=== PATIENT | female | born 1990 | race Caucasian/White ===

== ENCOUNTER 2016-11-20 17:18 | Inpatient (IN) | payer OTHER ==
[2016-11-20] VITALS (8 sets, daily range): BP systolic 97–125; BP diastolic 55–88; PULSE 103–144; RESP 18–30; TEMP 98.2; O2SAT 97–100
[~2016-11-20] VITALS: Ht 162.6 cm; Wt 81.3 kg
[~2016-11-20 17:18] MED LIST: AUGM500T7 PO; DIFL100T PO; DOXY100C PO; METH5SOL11 PO; OXYC1TAB35 PO; POTA20TA5 PO
[2016-11-20] MEDS ORDERED: DEXTROSE 5% IV SCH ×6 (17:45→22:45)
[2016-11-20] MEDS ORDERED: WATER IV SCH ×2 (17:45)
[2016-11-20] MEDS ORDERED: ACETYLCYSTEINE IV SCH ×6 (17:45→22:45)
[2016-11-20 17:58] LABS: BLOOD GAS BASE EXCESS -4.4 mmol/L (-2-2); BLOOD GAS CARBOXYHEMOGLOBIN 5.5 % (0-4); BLOOD GAS HCO3 20 mmol/L (22-26); BLOOD GAS METHEMOGLOBIN 2.3 % (0-2); BLOOD GAS O2 HGB SATURATION 89 % (90-100); BLOOD GAS OXYGEN CONTENT 17.3 Vol % (12.0-20.0); BLOOD GAS PCO2 32 mmHg (38-42); BLOOD GAS PO2 92 mmHG (61-120); BLOOD GAS TOTAL HGB 13.7 G/DL (12.0-16.0); TEMP CORR TO 98.6
[2016-11-20 17:59] LABS: CRITICAL VALUE YES; DRAW SITE RT RADIAL; FIO2 21 %; NUMBER OF ARTERIAL PUNCTURES 1; STAT YES; ULNAR PULSE PRESENT
[2016-11-20 18:04] LABS: AUTOMATED NEUTROPHIL # 5.5 TH/MM3 (1.8-7.7); BASOPHIL % 0.4 % (0.0-2.0); EOSINOPHIL # 0.1 TH/MM3 (0-0.4); EOSINOPHIL % 0.8 % (0.0-4.0); HEMATOCRIT 43.8 % (35.0-46.0); HEMO FLAGS DIFF FINAL; LYMPHOCYTE # 4.7 TH/MM3 (1.0-4.8); MEAN CELL VOLUME 98.4 FL (80.0-100.0); MEAN CORPUSCULAR HEMOGLOBIN 32.7 PG (27.0-34.0); MEAN CORPUSCULAR HGB CONC 33.2 % (32.0-36.0); MONO % 8.3 % (0.0-8.0); NEUT % 48.5 % (16.0-70.0); PLATELET COUNT 323 TH/MM3 (150-450); RED BLOOD COUNT 4.45 MIL/MM3 (4.00-5.30); WHITE BLOOD COUNT 11.3 TH/MM3 (4.0-11.0)
[2016-11-20 18:17] LABS: AMPHETAMINE, URINE NEG (NEG); BARBITURATES, URINE NEG (NEG); COCAINE, URINE POS (NEG)
[2016-11-20 18:22] LABS: ANION GAP 15 MEQ/L (5-15)
[2016-11-20 18:26] LABS: ALKALINE PHOSPHATASE 110 U/L (45-117); ALT (GPT) 52 U/L (10-53); AST (GOT) 46 U/L (15-37); BICARBONATE 20.7 MEQ/L (21.0-32.0); BLOOD UREA NITROGEN 10 MG/DL (7-18); CHLORIDE 99 MEQ/L (98-107); GLOMERULAR FILTRATION RATE 98 ML/MIN (>89); POTASSIUM 3.6 MEQ/L (3.5-5.1); SODIUM (NA) 135 MEQ/L (136-145); TOTAL BILIRUBIN ADULT 1.7 MG/DL (0.2-1.0)
[2016-11-20 18:29] LABS: ACETAMINOPHEN 298.8 MCG/ML (10.0-30.0)
[2016-11-20] MEDS ORDERED: WATE IV SCH ×4 (18:45→22:45)
--- NOTE | 2016-11-20 18:45 | PD ---
HPI Chief Complaint: OD/ Ingestion Time Seen by Provider: 17:40 Travel History International Travel<30 days: No Contact w/Intl Traveler<30days: No Traveled to known affect area: No History of Present Illness HPI 26-year-old female brought in by ambulance after being found sleeping in a parking lot and admitting to taking 1.5 bottles of Tylenol. Patient also admits to drinking alcohol to EMS. Upon arrival to the emergency department she is agitated and tearful. She states "you don't know me" and "I hate you". When asked if she took the Tylenol to kill herself she states "what do you think ?" She is unwilling to answer any other of my questions and is unable to tell me when she took the Tylenol. PFS Past Medical History ADHD: Yes Asthma: Yes (as child) Autoimmune Disease: No Blood Disorders: No Weight (Kg): 3 Cancer: No Cardiovascular Problems: No COPD: No Diabetes: No Diminished Hearing: No Endocrine: No Gastrointestinal Disorders: Yes Genitourinary: Yes (uti) Headaches: No Immune Disorder: No Implanted Vascular Access Dvce: No Musculoskeletal: No Neurologic: No Psychiatric: No Reproductive: No Respiratory: Yes (ASTHMA) Immunizations Current: Yes Migraines: No Pneumonia: Yes Seizures: No Sleep Apnea: No Thyroid Disease: No Ulcer: No ?: Unknown : 0 Para: 0 Past Surgical History Appendectomy: No Section: No Cholecystectomy: No Oral Surgery: Yes Other Surgery: Yes (ROOT CANAL 03/23/2010, JAW SURGERY) Social History Alcohol Use: Yes (OCCASIONALLY) Tobacco Use: Yes (1 PPD) Substance Use: Yes (IVDU) Allergies-Medications (Allergen,Severity, Reaction): Coded Allergies: *MDRO Multi-Drug Resistant Organism (Verified Adverse Reaction, Unknown, ) MRSA (face) -10/17/16 Reported Meds & Prescriptions Reported Meds & Active Scripts Active No Active Prescriptions or Reported Medications Review of Systems Except as stated in HPI: all other systems reviewed are Neg Physical Exam Narrative GENERAL: Awake, tearful, agitated SKIN: Warm and dry. Multiple horizontal scars from likely self-inflicted wounds to left anterior forearm. No rashes. HEAD: Atraumatic. Normocephalic. EYES: Pupils equal, round, 3 mm, reactive to light. No scleral icterus. No injection or drainage. ENT: No nasal bleeding or discharge. Mucous membranes pink and moist. Poor dentition. NECK: Trachea midline. No JVD. No nuchal rigidity. CARDIOVASCULAR: Regular rate and rhythm. RESPIRATORY: No accessory muscle use. Clear to auscultation. Breath sounds equal bilaterally. GASTROINTESTINAL: Abdomen soft, non-tender, nondistended. Hepatic and splenic margins not palpable. MUSCULOSKELETAL: No obvious deformities. No clubbing. No cyanosis. No edema. NEUROLOGICAL: Awake and alert. No obvious cranial nerve deficits. Motor grossly within normal limits. Normal speech. No focal deficit. PSYCHIATRIC: Tearful, agitated. Data Data Last Documented VS Vital Signs Date Time Temp Pulse Resp B/P Pulse Ox O2 Delivery O2 Flow Rate FiO2 11/20/16 18:30 105 30 97/55 99 Room Air 11/20/16 18:00 2.00 11/20/16 17:25 98.2 Orders Complete Blood Count With Diff (11/20/16 17:40) Comprehensive Metabolic Panel (11/20/16 17:40) Drug Screen, Random Urine (11/20/16 17:40) Electrocardiogram (11/20/16 17:40) Alcohol (Ethanol) (11/20/16 17:40) Salicylates (Aspirin) (11/20/16 17:40) Tylenol (Acetaminophen) (11/20/16 17:40) Arterial Blood Gas (Abg) (11/20/16 ) Acetylcysteine Inj (Acetadote Inj) (11/20/16 17:45) Acetylcysteine Inj (Acetadote Inj) (11/20/16 18:45) Acetylcysteine Inj (Acetadote Inj) (11/20/16 22:45) Cath For Specimen (11/20/16 17:54) Prothrombin Time / Inr (Pt) (11/20/16 17:54) Act Partial Throm Time (Ptt) (11/20/16 17:54) Consult Vascular Access Team (11/20/16 ) Admit Order (Ed Use Only) (11/20/16 18:47) Labs Laboratory Tests Test 11/20/16 11/20/16 17:45 17:48 White Blood Count 11.3 TH/MM3 Red Blood Count 4.45 MIL/MM3 Hemoglobin 14.6 GM/DL Hematocrit 43.8 % Mean Corpuscular Volume 98.4 FL Mean Corpuscular Hemoglobin 32.7 PG Mean Corpuscular Hemoglobin 33.2 % Concent Red Cell Distribution Width 14.0 % Platelet Count 323 TH/MM3 Mean Platelet Volume 8.0 FL Neutrophils (%) (Auto) 48.5 % Lymphocytes (%) (Auto) 42.0 % Monocytes (%) (Auto) 8.3 % Eosinophils (%) (Auto) 0.8 % Basophils (%) (Auto) 0.4 % Neutrophils # (Auto) 5.5 TH/MM3 Lymphocytes # (Auto) 4.7 TH/MM3 Monocytes # (Auto) 0.9 TH/MM3 Eosinophils # (Auto) 0.1 TH/MM3 Basophils # (Auto) 0.0 TH/MM3 CBC Comment DIFF FINAL Differential Comment Sodium Level 135 MEQ/L Potassium Level 3.6 MEQ/L Chloride Level 99 MEQ/L Carbon Dioxide Level 20.7 MEQ/L Anion Gap 15 MEQ/L Blood Urea Nitrogen 10 MG/DL Creatinine 0.73 MG/DL Estimat Glomerular Filtration 98 ML/MIN Rate Random Glucose 102 MG/DL Calcium Level 8.5 MG/DL Total Bilirubin 1.7 MG/DL Aspartate Amino Transf 46 U/L (AST/SGOT) Alanine Aminotransferase 52 U/L (ALT/SGPT) Alkaline Phosphatase 110 U/L Total Protein 8.3 GM/DL Albumin 4.1 GM/DL Salicylates Level LESS THAN 1.7 MG/DL Urine Opiates Screen NEG Acetaminophen Level 298.8 MCG/ML Urine Barbiturates Screen NEG Urine Amphetamines Screen NEG Urine Benzodiazepines Screen POS Urine Cocaine Screen POS Urine Cannabinoids Screen NEG Ethyl Alcohol Level 264 MG/DL Blood Gas Puncture Site RT RADIAL Blood Gas Patient Temperature 98.6 Blood Gas HCO3 20 mmol/L Blood Gas Base Excess -4.4 mmol/L Blood Gas Oxygen Saturation 89 % Arterial Blood pH 7.40 Arterial Blood Partial 32 mmHg Pressure CO2 Arterial Blood Partial 92 mmHG Pressure O2 Arterial Blood Oxygen Content 17.3 Vol % Arterial Blood 5.5 % Carboxyhemoglobin Arterial Blood Methemoglobin 2.3 % Blood Gas Hemoglobin 13.7 G/DL Blood Gas Inspired Oxygen 21 % MDM Medical Decision Making Medical Screen Exam Complete: Yes Emergency Medical Condition: Yes Medical Record Reviewed: Yes Differential Diagnosis Tylenol overdose, alcohol intoxication, drug intoxication, suicidal ideation Narrative Course The patient was started on N-acetylcysteine shortly after arrival to the emergency department for reported Tylenol overdose today, unknown time of onset. Poison control was contacted by my nurse and they agree with starting the patient on N-acetylcysteine as well as the rest of our management. CBC is unremarkable. CMP is unremarkable aside from a T bili of 1.7. Urine drug screen is positive for benzodiazepines and cocaine. Alcohol level is 264. Tylenol level is 298. Case discussed with [employer] consultant Dr. Hernandez who will admit the patient to his service. Patient became very agitated. She was a threat to both herself and to staff. 4 point restraints were ordered. Critical Care Narrative Aggregate critical care time was 40 minutes. Time to perform other separately billable procedures was not included in the critical care time. My time did not include minutes spent treating any other patients simultaneously or on activities that did not directly contribute to the patient's treatment. The services I provided to this patient were to treat and/or prevent clinically significant deterioration that could result in: , permanent disability, liver failure I provided critical care services requiring my management, as noted below: Chart data review, documentation time, medication orders and management, vital sign assessments/reviewing monitor data, ordering and reviewing lab tests, ordering and interpreting/reviewing x-rays and diagnostic studies, care of the patient and discussion of the patient with the admitting physicians. Diagnosis Primary Impression: Tylenol overdose Qualified Code: T39.1X2A - Tylenol overdose, intentional self-harm, initial encounter Additional Impression: Alcohol intoxication Qualified Code: F10.129 - Alcohol intoxication, with unspecified complication Admitting Information Admitting Physician Requests: Admit Scripts No Active Prescriptions or Reported Meds Catracho Benitez MD Nov 20, 2016 18:45
[2016-11-20] MEDS ORDERED: MISCELLANEOUS NURSING INFORMATION XX SCH (19:00)
[2016-11-20] MEDS ORDERED: MORPHINE SULFATE 4 MG/ML INJ IV PRN (19:00)
[2016-11-20] MEDS ORDERED: CHLORHEXIDINE GLUCONATE 2 % 1 PACK (2 CLOTHS) TOP PRN (19:00)
[2016-11-20] MEDS ORDERED: SODIUM CHLORIDE 0.9% FLUSH 5 ML FLUSH IV FLUSH PRN (19:00)
[2016-11-20] MEDS ORDERED: RESP: ALBUTEROL 2.5 MG/IPRATROPIUM 0.5 MG NEB (PRN) INH (19:00)
[2016-11-20] MEDS ORDERED: ONDANSETRON HCL 4 MG/2 ML VIAL IV PRN (19:00)
[2016-11-20] MEDS ORDERED: LORazepam 2 MG/ML VIAL IV PRN (19:00)
--- NOTE | 2016-11-20 19:17 | HHI.HP ---
HPI Service Critical Care Medicine Primary Care Physician No Primary Care Physician Admission Diagnosis Tylenol overdose, alcohol intoxication Diagnosis: Chief Complaint: Intentional drug overdose Travel History International Travel<30 Days: No Contact w/Intl Traveler <30 Da: No Traveled to Known Affected Are: No History of Present Illness 26 y/o woman with extensive IVDU history intentionally ingested a large amount of tylenol and ethyl alcohol today. Tylenol level 298, ETOH 264. Urine positive for cocaine and narcotics. Clearly altered mental status on arrival to ED, unable to make rational decisions. Will require a sedation protocol for severe agitation. I fully anticipate hepatic injury will ensue. NAC has been started in ED promptly. Review of Systems ROS No chest pain or SOB. Intixicated however. Past Family Social History Allergies: Coded Allergies: *MDRO Multi-Drug Resistant Organism (Verified Adverse Reaction, Unknown, ) MRSA (face) -10/17/16 Past Medical History Past Medical History ADHD: Yes Asthma: Yes (as child) Autoimmune Disease: No Blood Disorders: No Weight (Kg): 3 Cancer: No Cardiovascular Problems: No COPD: No Diabetes: No Diminished Hearing: No Endocrine: No Gastrointestinal Disorders: Yes Genitourinary: Yes (uti) Headaches: No Immune Disorder: No Implanted Vascular Access Dvce: No Musculoskeletal: No Neurologic: No Psychiatric: No Reproductive: No Respiratory: Yes (ASTHMA) Immunizations Current: Yes Migraines: No Pneumonia: Yes Seizures: No Sleep Apnea: No Thyroid Disease: No Ulcer: No ?: Unknown : 0 Para: 0 Past Surgical History Appendectomy: No Section: No Cholecystectomy: No Oral Surgery: Yes Other Surgery: Yes (ROOT CANAL 03/23/2010, JAW SURGERY) Social History Alcohol Use: Yes (OCCASIONALLY) Tobacco Use: Yes (1 PPD) Substance Use: Yes (IVDU) Allergies-Medications Allergies-Medications (Allergen,Severity, Reaction): Coded Allergies: *MDRO Multi-Drug Resistant Organism (Verified Adverse Reaction, Unknown, ) MRSA (face) -10/17/16 Reported Meds & Prescriptions Reported Meds & Active Scripts Active No Active Prescriptions or Reported Medications Physical Exam Vital Signs Vital Signs Date Time Temp Pulse Resp B/P Pulse Ox O2 Delivery O2 Flow Rate FiO2 11/20/16 18:30 105 30 97/55 99 Room Air 11/20/16 18:00 98 Nasal Cannula 2.00 11/20/16 17:25 98.2 103 18 125/73 100 Physical Exam Gen: Severely agitated woman. Head: Atraumatic. Neck: Supple, airway widely patent. Lungs: Clear, no wheezes or crackles. Tachypnea. Heart: Tachycardia, NL S1S2. No JVD between screaming. Abdomen: Soft, voluntary guarding only. No tenderness. Extremities: Warm, well perfused. Numerous superficial transverse laceration left forearm. Neuro: Moves 4 limbs with 5/5 strength. Agitated, confused. Pupils 3 mm, reactive. Laboratory Laboratory Tests Test 11/20/16 11/20/16 17:45 17:48 White Blood Count 11.3 Red Blood Count 4.45 Hemoglobin 14.6 Hematocrit 43.8 Mean Corpuscular Volume 98.4 Mean Corpuscular Hemoglobin 32.7 Mean Corpuscular Hemoglobin 33.2 Concent Red Cell Distribution Width 14.0 Platelet Count 323 Mean Platelet Volume 8.0 Neutrophils (%) (Auto) 48.5 Lymphocytes (%) (Auto) 42.0 Monocytes (%) (Auto) 8.3 Eosinophils (%) (Auto) 0.8 Basophils (%) (Auto) 0.4 Neutrophils # (Auto) 5.5 Lymphocytes # (Auto) 4.7 Monocytes # (Auto) 0.9 Eosinophils # (Auto) 0.1 Basophils # (Auto) 0.0 CBC Comment DIFF FINAL Differential Comment Sodium Level 135 Potassium Level 3.6 Chloride Level 99 Carbon Dioxide Level 20.7 Anion Gap 15 Blood Urea Nitrogen 10 Creatinine 0.73 Estimat Glomerular Filtration 98 Rate Random Glucose 102 Calcium Level 8.5 Total Bilirubin 1.7 Aspartate Amino Transf 46 (AST/SGOT) Alanine Aminotransferase 52 (ALT/SGPT) Alkaline Phosphatase 110 Total Protein 8.3 Albumin 4.1 Salicylates Level LESS THAN 1.7 Urine Opiates Screen NEG Acetaminophen Level 298.8 Urine Barbiturates Screen NEG Urine Amphetamines Screen NEG Urine Benzodiazepines Screen POS Urine Cocaine Screen POS Urine Cannabinoids Screen NEG Ethyl Alcohol Level 264 Blood Gas Puncture Site RT RADIAL Blood Gas Patient Temperature 98.6 Blood Gas HCO3 20 Blood Gas Base Excess -4.4 Blood Gas Oxygen Saturation 89 Arterial Blood pH 7.40 Arterial Blood Partial 32 Pressure CO2 Arterial Blood Partial 92 Pressure O2 Arterial Blood Oxygen Content 17.3 Arterial Blood 5.5 Carboxyhemoglobin Arterial Blood Methemoglobin 2.3 Blood Gas Hemoglobin 13.7 Blood Gas Inspired Oxygen 21 Result Diagram: 11/20/16 1745 11/20/161744 Assessment and Plan Problem List: (1) Tylenol overdose ICD Code: T39.1X1A Status: Acute (2) Alcohol intoxication ICD Code: F10.129 Status: Acute Assessment and Plan Plan: CV: Aggressive hydration. Maintain urine > 50/hr. RESP: Elevated methgb and carboxyHgb, maintain pulse ox sats > 96%. May require intubation. NEURO: Watch for withdrawal seizures. Neuro checks hourly. GI: Sips only. LFTs q12h. : Urine > 50/hr HEME: Daily INR. ID: Observe for facial recurrence of past abscess. ENDO: q6h glucose. RENAL: Follow lytes PX: SCDs, no chemical - anticipate liver failure. Protonix. Overall impression: Patient is critically ill with potentially lethal tylenol ingestion and alcohol intoxication. Her liver function will deteriorate over the next 24 hours and I anticipate bleeding problems and possible coma. NAC antidote is infusing. Critical Care 44 mins Problem Qualifiers (1) Tylenol overdose: Qualified Code: T39.1X2A - Tylenol overdose, intentional self-harm, initial encounter (2) Alcohol intoxication: Qualified Code: F10.129 - Alcohol intoxication, with unspecified complication Shahram Hernandez MD Nov 20, 2016 19:17
[2016-11-20] MEDS: SODIUM CHLOR 0.9% 1000 ML INJ 1,000 ML IV SCH (19:23)
[2016-11-20 20:05] LABS: APTT (PATIENT) 25.4 SEC (24.3-30.1); INTERNATIONAL NORMALIZED RATIO 1.1 RATIO; PROTHROMBIN TIME - PATIENT 11.8 SEC (9.8-11.6)
[2016-11-20] MEDS: DEXMEDETOMIDINE INJ 50 ML IV SCH ×2 (20:13→22:46)
[2016-11-20] MEDS: PANTOPRAZOLE SODIUM 40 MG VIAL IV SCH (20:18)
[2016-11-20] MEDS: CHLORHEXIDINE GLUCONATE 2 % 1 PACK (2 CLOTHS) TOP SCH (21:41)
[2016-11-21] VITALS (14 sets, daily range): BP systolic 95–141; BP diastolic 60–91; PULSE 53–88; RESP 14–20; TEMP 98–98.7; O2SAT 98–100
[2016-11-21] MEDS: DEXMEDETOMIDINE INJ 50 ML IV SCH ×2 (00:02→03:22)
[2016-11-21] MEDS: SODIUM CHLOR 0.9% 1000 ML INJ 1,000 ML IV SCH ×4 (03:26→20:46)
[2016-11-21 05:37] LABS: BLOOD GAS CARBOXYHEMOGLOBIN 1.7 % (0-4); BLOOD GAS HCO3 23 mmol/L (22-26); BLOOD GAS METHEMOGLOBIN 0.8 % (0-2); BLOOD GAS O2 HGB SATURATION 91 % (90-100); BLOOD GAS OXYGEN CONTENT 15.1 Vol % (12.0-20.0); BLOOD GAS PCO2 35 mmHg (38-42); BLOOD GAS PO2 68 mmHg (61-120); BLOOD GAS TOTAL HGB 11.8 G/DL (12.0-16.0); CRITICAL VALUE NO; FIO2 21 %; OXYGEN DEVICE RA; TEMP CORR TO 98.6
[2016-11-21 05:38] LABS: DRAW SITE LT RADIAL; NUMBER OF ARTERIAL PUNCTURES 1; STAT NO; ULNAR PULSE PRESENT
[2016-11-21 08:56] LABS: AUTOMATED NEUTROPHIL # 3.2 TH/MM3 (1.8-7.7); BASOPHIL % 0.5 % (0.0-2.0); EOSINOPHIL % 0.6 % (0.0-4.0); HEMATOCRIT 35.1 % (35.0-46.0); HEMO FLAGS DIFF FINAL; LYMPH % 32.7 % (9.0-44.0); LYMPHOCYTE # 1.8 TH/MM3 (1.0-4.8); MEAN CELL VOLUME 97.1 FL (80.0-100.0); MEAN CORPUSCULAR HEMOGLOBIN 32.4 PG (27.0-34.0); MEAN CORPUSCULAR HGB CONC 33.4 % (32.0-36.0); MONO % 9.1 % (0.0-8.0); NEUT % 57.1 % (16.0-70.0); PLATELET COUNT 190 TH/MM3 (150-450); RED BLOOD COUNT 3.61 MIL/MM3 (4.00-5.30); RED CELL DISTRIBUTION WIDTH 13.8 % (11.6-17.2); WHITE BLOOD COUNT 5.5 TH/MM3 (4.0-11.0)
[2016-11-21] MEDS: SODIUM CHLORIDE 0.9% FLUSH 5 ML FLUSH IV FLUSH SCH ×2 (09:00→20:47)
[2016-11-21] MEDS: PANTOPRAZOLE SODIUM 40 MG VIAL IV SCH (09:00)
[2016-11-21 09:05] LABS: INTERNATIONAL NORMALIZED RATIO 1.1 RATIO; PROTHROMBIN TIME - PATIENT 12.6 SEC (9.8-11.6)
[2016-11-21 09:25] LABS: ALKALINE PHOSPHATASE 77 U/L (45-117); ALT (GPT) 44 U/L (10-53); ANION GAP 11 MEQ/L (5-15); AST (GOT) 28 U/L (15-37); BICARBONATE 23.7 MEQ/L (21.0-32.0); BLOOD UREA NITROGEN 6 MG/DL (7-18); CHLORIDE 102 MEQ/L (98-107); GLOMERULAR FILTRATION RATE 176 ML/MIN (>89); MAGNESIUM 1.7 MG/DL (1.5-2.5); SODIUM (NA) 137 MEQ/L (136-145)
[2016-11-21 09:29] LABS: POTASSIUM 2.5 MEQ/L (3.5-5.1)
[2016-11-21] MEDS ORDERED: MAGNESIUM SULFATE INJ 4 GM in SODIUM CHLORIDE 0.9% INJ 92 ML IV PRN (09:45)
[2016-11-21] MEDS ORDERED: POTASSIUM PHOSPHATE MONOBASIC 500 MG TAB PO/TUBE PRN (09:45)
[2016-11-21] MEDS ORDERED: POTASSIUM CHLOR 20 MEQ PREMIX 100 ML IV PRN (09:45)
[2016-11-21] MEDS ORDERED: POTASSIUM PHOSPHATE MONOBASIC 500 MG TAB PO PRN (09:45)
[2016-11-21] MEDS ORDERED: SODIUM PHOSPHATE INJ 30 MMOL in SODIUM CHLOR 0.9% 250 ML INJ 240 ML IV PRN (09:45)
[2016-11-21] MEDS ORDERED: POTASSIUM CL 40 MEQ/30 ML LIQ UDC PO/TUBE PRN ×2 (09:45)
[2016-11-21] MEDS ORDERED: POTASSIUM CHLOR 40 MEQ PREMIX 100 ML IV PRN ×2 (09:45)
[2016-11-21] MEDS ORDERED: POTASSIUM PHOSPHATE INJ 30 MMOL in SODIUM CHLOR 0.9% 250 ML INJ 250 ML IV PRN (09:45)
[2016-11-21] MEDS ORDERED: MAGNESIUM OXIDE 400 MG TAB PO PRN (09:45)
[2016-11-21] MEDS ORDERED: MAGNESIUM SULFATE INJ 2 GM in SODIUM CHLORIDE 0.9% INJ 96 ML IV PRN (09:45)
[2016-11-21] MEDS: METHADONE HCL 10 MG TAB PO SCH ×2 (10:41→11:27)
[2016-11-21] MEDS: POTASSIUM CHLOR 20 MEQ PREMIX 100 ML IV PRN ×3 (11:28→20:47)
--- NOTE | 2016-11-21 13:22 | PD.CONS ---
Provisional Diagnosis Admission Date Nov 20, 2016 at 18:49 [place] I. Polysubstance abuse F 19.10, drug-induced mood disorder F 19.94 History of Present Illness Service Psychiatry Consult Requested By Attending Lizzy Reason for Consult Barreto act Primary Care Physician No Primary Care Physician HPI Patient is a 26-year-old white female brought to the ED under Barreto act by the [place] [employer] dated 11/20/16 at 1715 hrs. stating she took 2 bottles of Tylenol and was drinking alcohol in that she wanted to kill herself. Patient was seen screened and treatment started in the ED and toxicology positive for cocaine and benzodiazepines, blood alcohol level of 264. Patient was admitted to the critical care unit is not being treated for the Tylenol toxicity has been placed back on her methadone and also on opiates for her stated pain. Review of the EMR shows multiple visits to [facility] starting in 2005 as an adolescent. There have been various substances involved with her contacts here since that point in time including marijuana cocaine benzodiazepines alcohol. The been various medical issues that could be also subsumed under drug abuse problems including IVDA. Patient seen in her room with a suture, RN, and medical student kanu. Patient is alert oriented white female appears somewhat older than her stated age and her short dirty blonde hair somewhat disheveled in appearance with very poor dental hygiene. However patient is alert and oriented in all 4 spheres. She states she lives with her mother and father who drink with her. She got somewhat upset with them. She became upset also the fact that she was unable to get her daily methadone. She states she had prior thoughts of benzodiazepines from her friend , that cocaine for friend that she smoked, and drank alcohol with her parents. She states that cocaine is infrequent. The alcohol she states his daily. With the alcohol she acknowledges a.m. drinking Solo drinking and blacking out spells. She is vague and ambiguous but acknowledges a detox program sometime in the past she also acknowledges various legal issues in the past including DUIs and open containers she states she has been in some type of a court ordered program perhaps while she was incarcerated in the past. She states her opiate of choice is Dilaudid that she does intravenous. She states she has been on methadone on and off for for a couple of years at one time being on much more than the 75 mg she is taking now. She is vague about any prior psychiatric contact but appears she has had some contact with [facility] as the adolescent, she was seen in consultation by Dr. Moreau January 2016 for similar episode he also lifted the Barreto act Dilaudid to be discharged. Patient she has a boyfriend who is in [facility] in [place] for drug related charges. Patient states she has a GED, denies any past physical or sexual abuse. But states there was an older sister in the house in the past was a drug abuser and she attempted to imitate her At this time I feel patient does not meet criteria for involuntary psychiatric hospitalization under the Barreto act. Thus I will lift the Barreto act. I have no specific recommendations for medication. Though surely recommend a voluntary assessment outpatient through [facility] act related to her substance use. Perhaps referral to AA/NA. Perhaps if her parents are really concerned about this child's future initiating a [email or web address] act the abdomen is some long-term treatment. Otherwise as okay by psychiatry for discharge when she is medically clear and stable Review of Systems ROS Limitations: Uncooperative, Other (manipulative) Except as stated in HPI: all other systems reviewed are Neg Past Family Social History Coded Allergies: *MDRO Multi-Drug Resistant Organism (Verified Adverse Reaction, Unknown, ) MRSA (face) -10/17/16 Past Medical History Patient long history of contact with [facility] please see EMR Discontinued Reported Medications Methadone Liq 1 Mg/Ml [id number] Mg PO DAILY Ref 0 10/11/16 Discontinued Scripts Doxycycline Hyclate 100 Mg [id number] Mg PO BID #28 CAP Ref 0 Prov:Aldo Quintero MD 10/25/16 Amoxicillin-Clavulanate (Augmentin)500-125 mg [id number] Mg PO Q8H 14 Days Ref 0 Prov:Aldo Quintero MD 10/25/16 Fluconazole (Diflucan)100 Mg [id number] Mg PO DAILY 14 Days Prov:Aldo Quintero MD 10/25/16 Potassium Chloride Microencaps 20 Meq Tab20 Meq PO DAILY 14 Days Prov:Aldo Quintero MD 10/24/16 Oxycodone-Acetaminophen 7.5-325 mg Tab1 Tab PO Q6H PRN (PAIN SCALE 1 TO 10) #24 TAB Prov:Aldo Quintero MD 12/19/16 Current Medications Medications (Trade) Dose Ordered Sig/Patricia Route Start Time Stop Time Status Last Admin Acetylcysteine 8000 mg/Dextrose 1,040 ml @ 62.5 mls/hr ONCE IV 11/20/16 22:45 11/21/16 14:44 11/21/16 00:02 (NS 1000 ml Inj) 1,000 ml @ 125 mls/hr Q8H IV 11/20/16 18:50 11/21/16 11:27 (NS Flush) 2 ml UNSCH PRN IV FLUSH 11/20/16 19:00 (NS Flush) 2 ml BID IV FLUSH 11/20/16 21:00 (Morphine Inj) 2 mg Q2H PRN IV 11/20/16 19:00 (Protonix Inj) 40 mg DAILY IV 11/20/16 19:00 11/20/16 20:18 (Ativan Inj) 2 mg Q1H PRN IV 11/20/16 19:00 (Zofran Inj) 4 mg Q6H PRN IV 11/20/16 19:00 11/21/16 10:50 Miscellaneous Information 1 [id number] XX 11/20/16 19:00 (Chlorhexidine 2% Cloth) 3 pack Taper DAILY@04 TOP 11/21/16 04:00 11/17/17 03:59 11/20/16 21:41 Chlorhexidine Gluconate 3 pack 3 pack UNSCH PRN TOP 11/20/16 19:00 (Precedex Inj) 50 ml @ 0 mls/hr TITRATE IV 11/20/16 19:00 11/21/16 03:22 Methadone HCl 75 mg 75 mg DAILY PO 11/21/16 10:00 11/21/16 11:27 Potassium Chloride 100 ml @ 50 mls/hr Q2H PRN IV 11/21/16 09:45 (KCl 20 Meq Premix Inj) 100 ml @ 50 mls/hr Q2H PRN IV 11/21/16 09:45 11/21/16 11:28 Potassium Chloride 40 meq 40 meq UNSCH PRN PO/TUBE 11/21/16 09:45 Potassium Chloride 100 ml @ 25 mls/hr UNSCH PRN IV 11/21/16 09:45 Potassium Chloride 100 ml @ 50 mls/hr Q2H PRN IV 11/21/16 09:45 (Magnesium Sulfate Inj/NS Inj) 100 ml @ 50 mls/hr UNSCH PRN IV 11/21/16 09:45 Magnesium Oxide 800 mg 800 mg UNSCH PRN PO 11/21/16 09:45 (Magnesium Sulfate Inj/NS Inj) 100 ml @ 50 mls/hr UNSCH PRN IV 11/21/16 09:45 Potassium Phosphate 2000 mg 2,000 mg Q4H PRN PO 11/21/16 09:45 (Sodium Phosphate Inj/NS 250 ml Inj) 250 ml @ 42 mls/hr UNSCH PRN IV 11/21/16 09:45 (KCl 40 Meq/30 ml Liq) 40 meq UNSCH PRN PO/TUBE 11/21/16 09:45 11/21/16 10:33 Potassium Phosphate 2000 mg 2,000 mg UNSCH PRN PO/TUBE 11/21/16 09:45 (Potassium Phosphate Inj/NS 250 ml Inj) 260 ml @ 42 mls/hr UNSCH PRN IV 11/21/16 09:45 Family History Patient lives with her mother and father were both drinkers, they drink and green party together. Patient is single denies or children Social History Patient has boyfriend in [facility] and for drug related issues, he has multiple year history of polysubstance abuse Patient's Strengths (min. 2) Patient verbal cooperative able access healthcare Physical Exam Please see [facility] Vital Signs Vital Signs Date Time Temp Pulse Resp B/P Pulse Ox O2 Delivery O2 Flow Rate FiO2 11/21/16 12:00 57 11/21/16 12:00 98.0 14 141/87 100 11/21/16 07:54 21 11/21/16 07:00 Room Air 11/20/16 18:00 2.00 I/O 11/20/16 11/20/16 11/21/16 08:00 16:00 00:00 Intake Total 965 ml Balance 965 ml Mental Status Examination Alert oriented somewhat scruffy disheveled overweight white female sitting in her bed a shruthi, RN, and medical student kanu present throughout session. She is somewhat guarded superficial at times somewhat manipulative in her answers. She has poor eye contact. Appearance Somewhat disheveled and scruffy Speech: Hesitant, Slow, Circumstantial, Tangential Orientation: x3 Memory: Unremarkable (somewhat manipulative in her recall) Thought Process: Logical Thought Content: Unremarkable Hallucination Type: None Attention and Concentration: Other (poor) Suicidal Ideation: No (denies today) Previous Suicide Attempts: Yes Homicidal Ideation: No Previous Homicide Attempts: No Insight: Poor Judgement: Poor Affect: Other (decreased range and intensity) Mood: Oppositional, Irritable Motor Activity: Normal gait Assessment & Plan Problem List: (1) Polysubstance abuse ICD Code: F19.10 (2) Drug-induced mood disorder ICD Code: F19.94 Assessment & Plan Estimated LOS: days at this time patient does not meet Barreto criteria will lift Barreto act. Strong recommendation for referral [facility] voluntary outpatient substance abuse assessment, referral AA/NA, and the family would be willing they may initiate a [facility] act to attempt to give this young woman further treatment for her multiple addictions. No Rx by me thanks for consult I will sign off at the present time Discharge Planning See above Request HC Surrog/Guard Advoc?: No Robert Fatima MD Nov 21, 2016 13:22
--- NOTE | 2016-11-21 14:10 | HHI.CCPN ---
Subjective Remarks/Hospital Course 26 y/o woman with extensive IVDU history intentionally ingested a large amount of tylenol and ethyl alcohol today. Tylenol level 298, ETOH 264. Urine positive for cocaine and narcotics. Clearly altered mental status on arrival to ED, unable to make rational decisions. Will require a sedation protocol for severe agitation. I fully anticipate hepatic injury will ensue. NAC has been started in ED promptly. Objective Vital Signs Date Time Temp Pulse Resp B/P Pulse Ox O2 Delivery O2 Flow Rate FiO2 11/21/16 12:00 57 11/21/16 12:00 98.0 14 141/87 100 11/21/16 07:54 21 11/21/16 07:00 Room Air 11/20/16 18:00 2.00 Intake and Output 11/20/16 11/20/16 11/21/16 08:00 16:00 00:00 Intake Total 965 ml Balance 965 ml Result Diagram: 11/21/16 0828 11/21/16827 Other Results Laboratory Tests Test 11/20/16 11/21/16 17:48 05:27 Blood Gas Puncture Site RT RADIAL LT RADIAL Blood Gas Patient Temperature 98.6 98.6 Blood Gas HCO3 20 mmol/L 23 mmol/L (22-26) (22-26) Blood Gas Base Excess -4.4 mmol/L -1.0 mmol/L (-2-2) (-2-2) Blood Gas Oxygen Saturation 89 % (90-100) 91 % (90-100) Arterial Blood pH 7.40 7.43 (7.380-7.420) (7.380-7.420) Arterial Blood Partial 32 mmHg (38-42) 35 mmHg (38-42) Pressure CO2 Arterial Blood Partial 92 mmHG 68 mmHg Pressure O2 (61-120) (61-120) Arterial Blood Oxygen Content 17.3 Vol % 15.1 Vol % (12.0-20.0) (12.0-20.0) Arterial Blood 5.5 % (0-4) 1.7 % (0-4) Carboxyhemoglobin Arterial Blood Methemoglobin 2.3 % (0-2) 0.8 % (0-2) Blood Gas Hemoglobin 13.7 G/DL 11.8 G/DL (12.0-16.0) (12.0-16.0) Blood Gas Inspired Oxygen 21 % 21 % Oxygen Delivery Device RA Objective Remarks Gen: Severely agitated woman. Head: Atraumatic. Neck: Supple, airway widely patent. Lungs: Clear, no wheezes or crackles. Tachypnea. Heart: Tachycardia, NL S1S2. No JVD between screaming. Abdomen: Soft, voluntary guarding only. No tenderness. Extremities: Warm, well perfused. Numerous superficial transverse laceration left forearm. Neuro: Moves 4 limbs with 5/5 strength. Agitated, confused. Pupils 3 mm, reactive. A/P Problem List: (1) Tylenol overdose ICD Code: T39.1X1A Status: Acute (2) Alcohol intoxication ICD Code: F10.129 Status: Acute Assessment and Plan Plan: CV: - Aggressive hydration. Maintain urine > 50/hr. RESP: - Elevated methgb and carboxyHgb, - maintain pulse ox sats > 96%. May require intubation. NEURO: - Watch for withdrawal seizures. - Neuro checks hourly. - Psych consult appreciated GI: - LFTs q12h. - regular diet - Tylenol overdose - Acetylcysteine gtt - further per poison control center : - Urine > 50/hr HEME: - Daily INR. and Coags profile ID: - Observe for facial recurrence of past abscess. ENDO: - q6h glucose. - ISS if indicated RENAL: - Follow lytes - monitor I&O PX: SCDs, no chemical - anticipate liver failure. Protonix. Overall impression: Patient is critically ill with potentially lethal tylenol ingestion and alcohol intoxication. Her liver function will deteriorate over the next 24 hours and I anticipate bleeding problems and possible coma. NAC antidote is infusing. Level 3 Problem Qualifiers (1) Tylenol overdose: Qualified Code: T39.1X2A - Tylenol overdose, intentional self-harm, initial encounter (2) Alcohol intoxication: Qualified Code: F10.129 - Alcohol intoxication, with unspecified complication Sumit Ortiz MD Nov 21, 2016 14:10
[2016-11-21 17:45] LABS: INDIRECT BILIRUBIN 0.9 MG/DL (0.0-0.8); TOTAL BILIRUBIN ADULT 1.2 MG/DL (0.2-1.0)
[2016-11-21 18:27] LABS: INTERNATIONAL NORMALIZED RATIO 1.1 RATIO; PROTHROMBIN TIME - PATIENT 12.2 SEC (9.8-11.6)
--- NOTE | 2016-11-21 19:35 | EKG ---
Date Performed: 11/20/2016 Time Performed: 17:48:20 PTAGE: 26 years EKG: Sinus rhythm POSSIBLE LEFT ATRIAL ENLARGEMENT BORDERLINE RIGHT AXIS DEVIATION BORDERLINE ECG PREVIOUS TRACING : 01/28/2016 01.28 DOCTOR: Emmett Leiva Interpretating Date/Time 11/21/2016 19:32:18
[2016-11-21 22:38] LABS: ACETAMINOPHEN LESS THAN 2.0 MCG/ML (10.0-30.0)
[2016-11-22] VITALS: BP 118/77; PULSE 66; PULSE 80; RESP 14; TEMP 98.2; O2SAT 100
[2016-11-22] MEDS: POTASSIUM CHLOR 20 MEQ PREMIX 100 ML IV PRN (00:25)
[2016-11-22 02:00] VITALS: PULSE 64
[2016-11-22 04:00] VITALS: BP 113/80; PULSE 75; RESP 22; TEMP 98.4; O2SAT 99
[2016-11-22] MEDS: CHLORHEXIDINE GLUCONATE 2 % 1 PACK (2 CLOTHS) TOP SCH (04:00)
[2016-11-22 04:57] LABS: AUTOMATED NEUTROPHIL # 2.2 TH/MM3 (1.8-7.7); BASOPHIL % 0.5 % (0.0-2.0); EOSINOPHIL # 0.1 TH/MM3 (0-0.4); EOSINOPHIL % 1.4 % (0.0-4.0); HEMATOCRIT 35.5 % (35.0-46.0); HEMO FLAGS DIFF FINAL; LYMPH % 46.2 % (9.0-44.0); LYMPHOCYTE # 2.3 TH/MM3 (1.0-4.8); MEAN CELL VOLUME 99.2 FL (80.0-100.0); MEAN CORPUSCULAR HEMOGLOBIN 33.3 PG (27.0-34.0); MEAN CORPUSCULAR HGB CONC 33.6 % (32.0-36.0); MONO % 7.7 % (0.0-8.0); NEUT % 44.2 % (16.0-70.0); PLATELET COUNT 165 TH/MM3 (150-450); RED BLOOD COUNT 3.58 MIL/MM3 (4.00-5.30); RED CELL DISTRIBUTION WIDTH 14.1 % (11.6-17.2)
[2016-11-22 05:05] LABS: INTERNATIONAL NORMALIZED RATIO 1.1 RATIO; PROTHROMBIN TIME - PATIENT 12.4 SEC (9.8-11.6)
[2016-11-22 05:28] LABS: ACETAMINOPHEN LESS THAN 2.0 MCG/ML (10.0-30.0); ALKALINE PHOSPHATASE 66 U/L (45-117); ALT (GPT) 35 U/L (10-53); AST (GOT) 30 U/L (15-37); INDIRECT BILIRUBIN 1.1 MG/DL (0.0-0.8); TOTAL BILIRUBIN ADULT 1.3 MG/DL (0.2-1.0)
--- NOTE | 2016-11-22 05:38 | PD.PROCEDR ---
Procedure Note Procedure Procedure: Arterial Line Placement Right radial arterial line Diagnosis: Lower GI bleed Indications: Need for serial arterial blood gas sampling, need for beat to beat hemodynamic monitoring Consent: Consent is deemed emergent or medically necessary Description of the Procedure: The right wrist was prepped and draped sterilely. 1% lidocaine was used for local anesthesia. The pulse was located and a needle was advanced into the artery. A 20 gauge, 12 cm catheter was advanced into the artery using a modified Seldinger technique. The catheter was sutured to the skin and a sterile dressing was applied. The catheter was connected to a pressure transducer and an arterial waveform was noted. There were no immediate complications noted. There was minimal EBL. I personally performed the procedure. Zohaib Valente MD Nov 22, 2016 05:38
[2016-11-22 06:00] VITALS: PULSE 58
[2016-11-22 08:00] VITALS: BP 114/70; PULSE 71; RESP 26; TEMP 98.1; O2SAT 100
[2016-11-22] MEDS: SODIUM CHLORIDE 0.9% FLUSH 5 ML FLUSH IV FLUSH SCH (08:30)
[2016-11-22] MEDS: PANTOPRAZOLE SODIUM 40 MG VIAL IV SCH (08:30)
[2016-11-22] MEDS: SODIUM CHLOR 0.9% 1000 ML INJ 1,000 ML IV SCH (08:31)
[2016-11-22] MEDS: METHADONE HCL 10 MG TAB PO SCH (08:31)
--- NOTE | 2016-11-22 09:22 | HHI.PR ---
Subjective Remarks awake and alert, denies any nausea vomiting or abdominal pain patient denies any suicidal ideations or intents goes to methadone clinic Objective Vitals Vital Signs Date Time Temp Pulse Resp B/P Pulse Ox O2 Delivery O2 Flow Rate FiO2 11/22/16 08:00 71 11/22/16 08:00 98.1 71 26 114/70 100 11/22/16 07:00 100 Room Air 11/22/16 06:00 58 11/22/16 04:00 75 11/22/16 04:00 98.4 75 22 113/80 99 11/22/16 02:00 64 11/22/16 00:00 66 11/22/16 00:00 98.2 80 14 118/77 100 11/21/16 22:00 81 11/21/16 20:00 80 11/21/16 20:00 98.7 80 14 111/75 100 11/21/16 19:58 21 11/21/16 19:00 100 Room Air 11/21/16 18:00 55 11/21/16 16:00 98.6 73 16 124/76 100 11/21/16 16:00 73 11/21/16 14:00 69 11/21/16 12:00 57 11/21/16 12:00 98.0 57 14 141/87 100 11/21/16 10:00 53 I/O 11/21/16 11/21/16 11/21/16 11/22/16 11/22/16 11/22/16 07:00 15:00 23:00 07:00 15:00 23:00 Intake Total 1463 ml 2340 ml 2019 ml 504 ml Balance 1463 ml 2340 ml 2019 ml 504 ml Intake Oral 0 ml 600 ml 825 ml 250 ml IV Total 1463 ml 1740 ml 1194 ml 254 ml # Voids 1 1 4 4 # Bowel Movements 0 0 Result Diagram: 11/22/1641111/22/16411 Objective Remarks awake and alert, oreinted x 3 lungs clear regular rhythm abdomen soft, nontender extremities no edema neuro exam- unremarkable A/P Assessment and Plan 26 years old admitted for Tylenol OD CV:- vital signs stable - Aggressive hydration. Maintain urine > 50/hr. RESP:- maintaining sats at room air NEURO: - Watch for withdrawal seizures. - Neuro checks hourly. - Psych consult appreciated= Barreto Act lifted GI: - LFTs - stable - regular diet - S/P Tylenol overdose - S/P Acetylcysteine HEME: - Daily INR.stable ID: - Observe for facial recurrence of past abscess. - afebrile Renal -Hypokalemia- recheck this am Polysubstance abuse- counselled extensively PX: SCDs, no chemical - anticipate liver failure. Protonix. anticipate DC today- if labs stable will ask our CM to assist with DC needs- OP referral- to drug rehab program Albert Elliott MD Nov 22, 2016 09:22 Albert Elliott MD Nov 22, 2016 09:22 Albert Elliott MD Nov 22, 2016 09:22
[2016-11-22 10:00] VITALS: PULSE 77
[2016-11-22 11:04] LABS: POTASSIUM 4.6 MEQ/L (3.5-5.1)
== END 2016-11-22 12:16 | disposition home or self-care (01) | DRG 918 ==
LOC: NEPA 17:18 → NEDA 18:49 → N03B 21:14
PROVIDERS: ADMIT Internal Medicine; ATTEND Internal Medicine
DX: T39.1X1A Poisoning by 4-Aminophenol derivatives, accidental (unintentional), initial encounter (principal); Z78.1 Physical restraint status; F19.24 Other psychoactive substance dependence with psychoactive substance-induced mood disorder; F10.129 Alcohol abuse with intoxication, unspecified; F90.9 Attention-deficit hyperactivity disorder, unspecified type; F17.210 Nicotine dependence, cigarettes, uncomplicated; Y90.8 Blood alcohol level of 240 mg/100 ml or more; Z86.14 Personal history of Methicillin resistant Staphylococcus aureus infection; E87.6 Hypokalemia
CPT/HCPCS: 36600; 76937; 80053; 80076; 80307; 80320; 80329; 82805; 82947; 83605; 83735; 84100; 84132; 85025; 85610; 85730; 87641; 93005; 96365; C9113; C9399; G0480; J0132; J2405; J3480; J7030; J7060; J7070

== ENCOUNTER 2017-03-02 20:37 | Emergency (ER) | payer SELFPAY ==
[~2017-03-02] VITALS: Ht 167.6 cm; Wt 72.4 kg
[2017-03-02 21:03] VITALS: BP 108/75; PULSE 98; RESP 18; TEMP 98.3; O2SAT 98
--- NOTE | 2017-03-02 21:59 | PD ---
HPI Chief Complaint: Abdominal Pain Time Seen by Provider: 21:49 Travel History International Travel<30 days: No Contact w/Intl Traveler<30days: No Traveled to known affect area: No History of Present Illness HPI The patient is a 26-year-old female, G0, P0, A0 his last menstrual period was near the beginning of January who complains of bilateral pelvic pain for 3 days. She denies any vaginal discharge. She denies any fever but does have some slight nausea without vomiting. She denies any dysuria, frequency or urgency. She does have a history of polysubstance abuse and alcohol abuse in the polysubstance abuse includes cocaine. She states her last beer was at noon today. She admits to shooting up Dilaudid 2 days ago. PFSH Past Medical History ADHD: Yes Asthma: Yes (as child) Autoimmune Disease: No Blood Disorders: No Weight (Kg): 3 Anxiety: Yes Depression: Yes Cancer: No Cardiovascular Problems: No COPD: No Diabetes: No Diminished Hearing: No Endocrine: No Gastrointestinal Disorders: Yes Genitourinary: Yes (uti) Headaches: No Immune Disorder: No Implanted Vascular Access Dvce: No Musculoskeletal: No Neurologic: No Psychiatric: Yes Reproductive: No Respiratory: Yes (ASTHMA) Immunizations Current: Yes Migraines: No Pneumonia: Yes Seizures: No Sleep Apnea: No Thyroid Disease: No Ulcer: No Tetanus Vaccination: < 5 Years ?: Unknown LMP: 01/10/17 : 0 Para: 0 Past Surgical History Abdominal Surgery: No Appendectomy: No Cardiac Surgery: No Section: No Cholecystectomy: No Ear Surgery: No Endocrine Surgery: No Genitourinary Surgery: No Gynecologic Surgery: No Oral Surgery: Yes Thoracic Surgery: No Other Surgery: Yes (ROOT CANAL 03/23/2010, [facility] SURGERY 2016) Social History Alcohol Use: Yes (OCCASIONALLY) Tobacco Use: Yes (1 PPD) Substance Use: Yes (methadone, ETOH, benzos, cocaine (1 time) yesterday) Allergies-Medications (Allergen,Severity, Reaction): Coded Allergies: *MDRO Multi-Drug Resistant Organism (Verified Adverse Reaction, Unknown, ) MRSA (face) -10/17/16 Reported Meds & Prescriptions Reported Meds & Active Scripts Active Flagyl (Metronidazole) 500 Mg Tab 500 Mg PO TID 10 Days Cipro (Ciprofloxacin HCl) 500 Mg Tab 500 Mg PO BID 10 Days Review of Systems Except as stated in HPI: all other systems reviewed are Neg Physical Exam Narrative GENERAL: The patient is alert, oriented 3 and moderate apparent distress with her bilateral pelvic pain. Her vital signs are normal except for heart rate of 98. She smells of beer. SKIN: Focused skin assessment warm/dry. There are recent needle tracks on the left forearm and bruises of varying ages over the body. HEAD: Atraumatic. Normocephalic. EYES: Pupils equal and round. No scleral icterus. No injection or drainage. ENT: No nasal bleeding or discharge. Mucous membranes pink and moist. NECK: Trachea midline. No JVD. CARDIOVASCULAR: Regular rate and rhythm. No murmur appreciated. RESPIRATORY: No accessory muscle use. Clear to auscultation. Breath sounds equal bilaterally. GASTROINTESTINAL: Abdomen soft, non-tender, nondistended. Hepatic and splenic margins not palpable. MUSCULOSKELETAL: No obvious deformities. No clubbing. No cyanosis. No edema. NEUROLOGICAL: Awake and alert. No obvious cranial nerve deficits. Motor grossly within normal limits. Normal speech. PSYCHIATRIC: Appropriate mood and affect; insight and judgment normal. Data Data Last Documented VS Vital Signs Date Time Temp Pulse Resp B/P Pulse Ox O2 Delivery O2 Flow Rate FiO2 03/03/17 00:21 95 16 106/56 96 Room Air 03/02/17 21:03 98.3 Orders Beta Hcg (Quant/Titer) (03/02/17 21:50) Complete Blood Count With Diff (03/02/17 21:50) Comprehensive Metabolic Panel (03/02/17 21:50) Gc And Chlamydia Pcr (03/02/17 21:50) Wet Prep Profile (03/02/17 21:50) Alcohol (Ethanol) (03/02/17 21:50) Drug Screen, Random Urine (03/02/17 21:50) Ct Abd/Pel W Iv Contrast(Rout) (03/02/17 21:59) Iv Access Insert/Monitor (03/02/17 21:59) Ecg Monitoring (03/02/17 21:59) Oximetry (03/02/17 21:59) Sodium Chloride 0.9% Flush (Ns Flush) (03/02/17 22:00) Tylenol (Acetaminophen) (03/02/17 22:01) Iohexol 350 Inj (Omnipaque 350 Inj) (03/03/17 00:30) Ceftriaxone Inj (Rocephin Inj) (03/03/17 01:15) Azithromycin Powd Pack (Zithromax Powd P (03/03/17 01:15) Labs Laboratory Tests Test 03/02/17 03/02/17 21:55 22:07 Clue Cells (Wet Prep) NONE SEEN Vaginal Trichomonas (Wet Prep) NONE SEEN Vaginal Yeast (Wet Prep) NONE SEEN Urine Opiates Screen POS Urine Barbiturates Screen NEG Urine Amphetamines Screen NEG Urine Benzodiazepines Screen NEG Urine Cocaine Screen POS Urine Cannabinoids Screen POS Chlamydia trachomatis DNA NOT DETECTED (PCR) Neisseria gonorrhoeae DNA NOT DETECTED (PCR) White Blood Count 11.6 TH/MM3 Red Blood Count 4.04 MIL/MM3 Hemoglobin 13.1 GM/DL Hematocrit 38.8 % Mean Corpuscular Volume 96.1 FL Mean Corpuscular Hemoglobin 32.3 PG Mean Corpuscular Hemoglobin 33.7 % Concent Red Cell Distribution Width 12.1 % Platelet Count 323 TH/MM3 Mean Platelet Volume 8.0 FL Neutrophils (%) (Auto) 62.8 % Lymphocytes (%) (Auto) 25.7 % Monocytes (%) (Auto) 7.2 % Eosinophils (%) (Auto) 1.3 % Basophils (%) (Auto) 3.0 % Neutrophils # (Auto) 7.3 TH/MM3 Lymphocytes # (Auto) 3.0 TH/MM3 Monocytes # (Auto) 0.8 TH/MM3 Eosinophils # (Auto) 0.2 TH/MM3 Basophils # (Auto) 0.3 TH/MM3 CBC Comment DIFF FINAL Differential Comment Sodium Level 141 MEQ/L Potassium Level 3.3 MEQ/L Chloride Level 105 MEQ/L Carbon Dioxide Level 24.1 MEQ/L Anion Gap 12 MEQ/L Blood Urea Nitrogen 6 MG/DL Creatinine 0.52 MG/DL Estimat Glomerular Filtration 145 ML/MIN Rate Random Glucose 103 MG/DL Calcium Level 8.3 MG/DL Total Bilirubin 0.3 MG/DL Aspartate Amino Transf 31 U/L (AST/SGOT) Alanine Aminotransferase 40 U/L (ALT/SGPT) Alkaline Phosphatase 55 U/L Total Protein 6.2 GM/DL Albumin 3.0 GM/DL Human Chorionic Gonadotropin, LESS THAN 1 Quant MIU/ML Acetaminophen Level LESS THAN 2.0 MCG/ML Ethyl Alcohol Level 106 MG/DL MDM Medical Decision Making Medical Screen Exam Complete: Yes Emergency Medical Condition: Yes Medical Record Reviewed: Yes Interpretation(s) The CBC shows a white count of 11,600 but is otherwise unremarkable. The complete metabolic profile shows potassium 3.3 and calcium of 8.3 but total protein of 6.2 and albumin of 3.0 but is otherwise normal. The beta-hCG is less than 1, she is not . The urine toxicology screen is positive for opiates, positive for cocaine and cannabinoids. The alcohol level is 106. The CT abdomen/pelvis with IV contrast shows bilateral ovarian cyst, right greater than left. It also shows mild sigmoid colitis. There are no high-grade or focal inflammatory changes. The appendix appears normal and the fatty infiltrated liver appears mildly enlarged. Differential Diagnosis PID, appendicitis, colitis, polysubstance abuse, IV drug abuse, right sided endocarditis Narrative Course The patient may have PID versus a mild colitis. Plan: She'll be given Rocephin IV and prescriptions for Cipro and Levaquin. She will also get 1 g Zithromax by mouth. Diagnosis Primary Impression: PID (acute pelvic inflammatory disease) Additional Impressions: Colitis IV drug abuse Alcohol abuse Additional Instructions: As we discussed, do not drink alcohol on Flagyl. This will give you an Antabuse reaction. The Flagyl is one tablet 3 times daily for 10 days. Med/Other Pt SpecificInfo: Prescription(s) given Scripts Metronidazole (Flagyl)500 Mg Vdi903 Mg PO TID 10 Days Ref 0 Prov:Osmany Lao MD 03/03/17 Ciprofloxacin (Cipro)500 Mg Qep848 Mg PO BID 10 Days Ref 0 Prov:Osmany Lao MD 03/03/17 Disposition: 01 DISCHARGE HOME Condition: Stable Osmany Lao MD Mar 02, 2017 21:59
[2017-03-02] MEDS ORDERED: SODIUM CHLORIDE 0.9% FLUSH 10 ML FLUSH IV FLUSH PRN (22:00)
[2017-03-02 22:14] LABS: AUTOMATED NEUTROPHIL # 7.3 TH/MM3 (1.8-7.7); BASOPHIL # 0.3 TH/MM3 (0-0.2); EOSINOPHIL # 0.2 TH/MM3 (0-0.4); EOSINOPHIL % 1.3 % (0.0-4.0); HEMATOCRIT 38.8 % (35.0-46.0); HEMO FLAGS DIFF FINAL; LYMPH % 25.7 % (9.0-44.0); MEAN CELL VOLUME 96.1 FL (80.0-100.0); MEAN CORPUSCULAR HEMOGLOBIN 32.3 PG (27.0-34.0); MEAN CORPUSCULAR HGB CONC 33.7 % (32.0-36.0); MONO % 7.2 % (0.0-8.0); NEUT % 62.8 % (16.0-70.0); PLATELET COUNT 323 TH/MM3 (150-450); RED BLOOD COUNT 4.04 MIL/MM3 (4.00-5.30); RED CELL DISTRIBUTION WIDTH 12.1 % (11.6-17.2); WHITE BLOOD COUNT 11.6 TH/MM3 (4.0-11.0)
[2017-03-02 22:23] LABS: BARBITURATES, URINE NEG (NEG); COCAINE, URINE POS (NEG)
[2017-03-02 22:31] LABS: AMPHETAMINE, URINE NEG (NEG)
[2017-03-02 22:38] LABS: CHLORIDE 105 MEQ/L (98-107); POTASSIUM 3.3 MEQ/L (3.5-5.1); SODIUM (NA) 141 MEQ/L (136-145)
[2017-03-02 22:41] LABS: ANION GAP 12 MEQ/L (5-15); BICARBONATE 24.1 MEQ/L (21.0-32.0)
[2017-03-02 22:42] LABS: BLOOD UREA NITROGEN 6 MG/DL (7-18)
[2017-03-02 22:44] LABS: ALT (GPT) 40 U/L (10-53); AST (GOT) 31 U/L (15-37); GLOMERULAR FILTRATION RATE 145 ML/MIN (>89)
[2017-03-02 22:46] LABS: TOTAL BILIRUBIN ADULT 0.3 MG/DL (0.2-1.0)
[2017-03-02 22:47] LABS: ALKALINE PHOSPHATASE 55 U/L (45-117)
[2017-03-02 22:49] LABS: BETA HCG QUANT LESS THAN 1 MIU/ML (0-5)
[2017-03-02 22:52] VITALS: BP 107/56; PULSE 65; RESP 19; O2SAT 98
[2017-03-03 00:21] VITALS: BP 106/56; PULSE 95; RESP 16; O2SAT 96
[2017-03-03] MEDS ORDERED: IOHEXOL 350 MG/ML 10 ML VIAL (for RAD DIAG) IV ONE (00:30)
--- NOTE | 2017-03-03 00:45 | RADHPO ---
EXAM DATE/TIME: 03/03/2017 00:01 [facility] COMPARISON: CT ABDOMEN & PELVIS W CONTRAST, September 11, 2014, 16:21. INDICATIONS : Bilateral pelvic pain for three days. IV CONTRAST: 96 cc Omnipaque 350 (iohexol) IV ORAL CONTRAST: No oral contrast ingested. RADIATION DOSE: 7.5 CTDIvol (mGy) MEDICAL HISTORY : None SURGICAL HISTORY : None. ENCOUNTER: Initial ACUITY: 3 days PAIN SCALE: 7/10 LOCATION: Bilateral pelvis TECHNIQUE: Volumetric scanning of the abdomen and pelvis was performed. Using automated exposure control and ad justment of the mA and/or kV according to patient size, radiation dose was kept as low as reasonably achievable to obtain optimal diagnostic quality images. FINDINGS: LOWER LUNGS: The visualized lower lungs are clear. LIVER: Mildly enlarged liver approximately 19.3 cm craniocaudal. Also appears slightly fatty infiltrated. No focal hepatic lesion. No biliary distention. SPLEEN: Upper limits of normal size. PANCREAS: Within normal limits. KIDNEYS: Normal in size and shape. There is no mass, stone or hydronephrosis. ADRENAL GLANDS: Within normal limits. VASCULAR: There is no aortic aneurysm. BOWEL/MESENTERY: There is mild wall thickening of the sigmoid colon with minimal associated perisigmoid stranding. The appendix is well-visualized and has upper limits of normal caliber and wall thickness, very similar to the comparison. No associated inflammatory changes are demonstrated. ABDOMINAL WALL: Within normal limits. RETROPERITONEUM: There is no lymphadenopathy. BLADDER: No wall thickening or mass. REPRODUCTIVE: Multiple cysts are seen of the right ovary, one measuring at least 3.2 x 4.6 cm and another 1.6 x 4.3 cm. There is small fluid in the right adnexal region and pelvic cul-de-sac. There is a left ovarian cyst that measures 9 x 19 mm in size. INGUINAL: There is no lymphadenopathy or hernia. MUSCULOSKELETAL: Within normal limits for patient age. CONCLUSION: 1. Bilateral ovarian cysts, largest on the right. 2. Mild sigmoid colitis possible in the proper clinical setting. No high-grade or focal inflammatory changes are demonstrated. There is no bowel obstruction. 3. Mildly enlarged and slightly fatty infiltrated liver. 4. Upper limits of normal caliber and wall thickness of the appendix without associated significant i nflammatory changes. The findings are similar to the comparison CT done in 2013. Robert Garza MD on March 03, 2017 at 0:39 Board Certified Radiologist. This report was verified electronically.
[2017-03-03 01:04] LABS: CHLAMYDIA PCR NOT DETECTED (NOT DETECT); NEISSERIA PCR NOT DETECTED (NOT DETECT)
[2017-03-03] MEDS ORDERED: CIPR-9 PO (01:06)
[2017-03-03] MEDS ORDERED: METR-1 PO (01:06)
[2017-03-03] MEDS ORDERED: AZITHROMYCIN PWD FOR SUSP 1 GM PACKET PO ONE (01:15)
[2017-03-03] MEDS ORDERED: cefTRIAXone INJ 1,000 MG in SODIUM CHLORIDE 0.9% INJ 100 ML IV ONE (01:15)
[2017-03-03 02:08] VITALS: BP 122/86; PULSE 103; RESP 16; O2SAT 98
== END 2017-03-03 02:15 | disposition home or self-care (01) ==
LOC: PHED 20:37
DX: N73.9 Female pelvic inflammatory disease, unspecified (principal); K52.9 Noninfective gastroenteritis and colitis, unspecified; F19.10 Other psychoactive substance abuse, uncomplicated; F10.10 Alcohol abuse, uncomplicated; J45.909 Unspecified asthma, uncomplicated
CPT/HCPCS: 74177; 80053; 80307; 84702; 85025; 87210; 87491; 87591; 96365; 99284; J0696; Q9967

== ENCOUNTER 2017-04-09 19:51 | Emergency (ER) | payer SELFPAY ==
[~2017-04-09] VITALS: Ht 170.2 cm; Wt 69.2 kg
[~2017-04-09 19:51] MED LIST changes: -AUGM500T7 PO; +CIPR-9 PO; -DIFL100T PO; -DOXY100C PO; -METH5SOL11 PO; +METR-1 PO; -OXYC1TAB35 PO; -POTA20TA5 PO
[2017-04-09 20:06] VITALS: BP 114/80; PULSE 119; RESP 16; TEMP 98.5; O2SAT 100
[2017-04-09] MEDS ORDERED: BACT800T5 PO (20:37)
--- NOTE | 2017-04-09 20:38 | PD ---
HPI Chief Complaint: Skin Problem Time Seen by Provider: 20:22 Travel History International Travel<30 days: No Contact w/Intl Traveler<30days: No Traveled to known affect area: No History of Present Illness HPI This 26-year-old female is complaining of a lump in her right axilla. She says been there for 5 days. There is no history of trauma. She has had MRSA infection in the past she is not aware of fever or chills. She also has some erythematous areas on the buttock PFSH Past Medical History ADHD: Yes Asthma: Yes (as child) Autoimmune Disease: No Blood Disorders: No Anxiety: Yes Depression: Yes Cancer: No Cardiovascular Problems: No COPD: No Diabetes: No Diminished Hearing: No Endocrine: No Gastrointestinal Disorders: Yes Genitourinary: Yes (uti) Headaches: No Immune Disorder: No Implanted Vascular Access Dvce: No Musculoskeletal: No Neurologic: No Psychiatric: Yes Reproductive: No Respiratory: Yes (ASTHMA) Immunizations Current: Yes Migraines: No Pneumonia: Yes Seizures: No Sleep Apnea: No Thyroid Disease: No Ulcer: No ?: Not : 0 Para: 0 Past Surgical History Abdominal Surgery: No Appendectomy: No Cardiac Surgery: No Section: No Cholecystectomy: No Ear Surgery: No Endocrine Surgery: No Genitourinary Surgery: No Gynecologic Surgery: No Oral Surgery: Yes Thoracic Surgery: No Other Surgery: Yes (ROOT CANAL 03/23/2010, [facility] SURGERY 2017) Social History Alcohol Use: Yes (OCCASIONALLY) Tobacco Use: Yes (1 PPD) Substance Use: Yes (methadone, ETOH, benzos, cocaine (1 time) yesterday) Allergies-Medications (Allergen,Severity, Reaction): Coded Allergies: *MDRO Multi-Drug Resistant Organism (Verified Adverse Reaction, Unknown, ) MRSA (face) -10/17/16 Reported Meds & Prescriptions Reported Meds & Active Scripts Active Flagyl (Metronidazole) 500 Mg Tab 500 Mg PO TID 10 Days Cipro (Ciprofloxacin HCl) 500 Mg Tab 500 Mg PO BID 10 Days Review of Systems General / Constitutional: No: Fever, Chills Eyes: No: Diploplia, Blurred Vision HENT: No: Headaches, Vertigo Cardiovascular: No: Chest Pain or Discomfort Respiratory: No: Cough, Shortness of Breath Gastrointestinal: No: Vomiting, Diarrhea Genitourinary: No: Urgency, Frequency Musculoskeletal: Positive: Pain Skin: Positive Lumps Neurologic: No: Weakness Physical Exam Narrative GENERAL: Well-developed female SKIN: Focused skin assessment warm/dry. Right axilla is a 3 x 3 cm fluctuant mass with erythema. There is an area of erythema on the buttock without underlying fluctuance HEAD: Atraumatic. Normocephalic. EYES: Pupils equal and round. No scleral icterus. No injection or drainage. ENT: No nasal bleeding or discharge. Mucous membranes pink and moist. NECK: Trachea midline. No JVD. CARDIOVASCULAR: Regular rate and rhythm. No murmur appreciated. RESPIRATORY: No accessory muscle use. Clear to auscultation. Breath sounds equal bilaterally. GASTROINTESTINAL: Abdomen soft, non-tender, nondistended. Hepatic and splenic margins not palpable. MUSCULOSKELETAL: No obvious deformities. No clubbing. No cyanosis. No edema. NEUROLOGICAL: Awake and alert. No obvious cranial nerve deficits. Motor grossly within normal limits. Normal speech. PSYCHIATRIC: Appropriate mood and affect; insight and judgment normal. Data Data Last Documented VS Vital Signs Date Time Temp Pulse Resp B/P Pulse Ox O2 Delivery O2 Flow Rate FiO2 04/09/17 20:06 98.5 119 16 114/80 100 Orders Sulfamet-Trimeth Ds 800-160 Mg (Bactrim (04/09/17 20:45) Ibuprofen (Motrin) (04/09/17 20:45) MDM Medical Decision Making Medical Screen Exam Complete: Yes Emergency Medical Condition: Yes Medical Record Reviewed: Yes Differential Diagnosis Differential includes cellulitis, abscess Narrative Course I&D of the right axilla abscess was performed. Patient will be released with prescription for Bactrim. Procedures Procedure Narrative After verbal consent was obtained the right axillary abscess was anesthetized with lidocaine and adrenaline. An incision was made and large amount of pus was obtained. Packing was inserted. Patient tolerated the procedure well Diagnosis Primary Impression: Axillary abscess Scripts Sulfamethoxazole-Trimethoprim (Bactrim DS)800-160 Mg Tab1 Tab PO BID #14 TAB Ref 0 Prov:Toni Garcia MD 04/09/17 Disposition: 01 DISCHARGE HOME Condition: Stable Toni Garcia MD Apr 09, 2017 20:38
[2017-04-09] MEDS ORDERED: SULFAMETHOXAZOLE-TRIMETHOPRIM DS 800-160 MG TAB PO ONE (20:45)
[2017-04-09] MEDS ORDERED: IBUPROFEN 600 MG TAB PO ONE (20:45)
== END 2017-04-09 21:07 | disposition home or self-care (01) ==
LOC: PHED 19:51
DX: L02.411 Cutaneous abscess of right axilla (principal); L53.9 Erythematous condition, unspecified; F17.200 Nicotine dependence, unspecified, uncomplicated; Z86.14 Personal history of Methicillin resistant Staphylococcus aureus infection; Z86.59 Personal history of other mental and behavioral disorders; Z87.19 Personal history of other diseases of the digestive system; Z87.440 Personal history of urinary (tract) infections; Z87.09 Personal history of other diseases of the respiratory system
CPT/HCPCS: 10061

== ENCOUNTER 2017-09-17 16:18 | Emergency (ER) | payer SELFPAY ==
[~2017-09-17] VITALS: Ht 170.2 cm; Wt 69.0 kg
[~2017-09-17 16:18] MED LIST changes: +BACT800T5 PO; -CIPR-9 PO; -METR-1 PO
[2017-09-17 16:21] VITALS: BP 132/99; PULSE 81; RESP 16; TEMP 98.3; O2SAT 100
[2017-09-17] MEDS ORDERED: LIDOCAINE 1%/EPINEPHrine 1:100,000 SOLN 20 ML VIAL INFIL ONE (16:30)
--- NOTE | 2017-09-17 16:52 | PD ---
HPI Chief Complaint: Skin Problem Time Seen by Provider: 16:29 Travel History International Travel<30 days: No Contact w/Intl Traveler<30days: No Traveled to known affect area: No History of Present Illness HPI 27-year-old female with history of MRSA presents the emergency department with abscess to the left axilla that she states has been present for the past 4 days. She denies fever, chills, or other symptoms. Pain Currently 8 out of 10. She has no known drug allergies. PFSH Past Medical History Medical History: Denies Significant Hx Hx Anticoagulant Therapy: No ADHD: Yes Asthma: Yes ( A CHILD) Autoimmune Disease: No Blood Disorders: No Weight (Kg): 3 Anxiety: Yes Depression: Yes Cancer: No Cardiovascular Problems: No COPD: No Diabetes: No Diminished Hearing: No Endocrine: No Gastrointestinal Disorders: Yes Genitourinary: Yes (UTI) Headaches: No Immune Disorder: No Implanted Vascular Access Dvce: No Musculoskeletal: No Neurologic: No Psychiatric: Yes Reproductive: No Respiratory: Yes Immunizations Current: Yes Migraines: No Pneumonia: Yes Seizures: No Sleep Apnea: No Thyroid Disease: No Ulcer: No ?: Unknown LMP: UNKNOWN : 0 Para: 0 Past Surgical History Surgical History: No Previous Surgery Abdominal Surgery: No Appendectomy: No Cardiac Surgery: No Section: No Cholecystectomy: No Ear Surgery: No Endocrine Surgery: No Genitourinary Surgery: No Gynecologic Surgery: No Oral Surgery: Yes Thoracic Surgery: No Other Surgery: Yes (ROOT CANAL 03/23/2010, JAW SURGERY 2017) Social History Alcohol Use: Yes (OCCASIONALLY) Tobacco Use: Yes (1 PPD) Substance Use: Yes (OPIATES) Allergies-Medications (Allergen,Severity, Reaction): Coded Allergies: *MDRO Multi-Drug Resistant Organism (Verified Adverse Reaction, Unknown, 09/17/17) MRSA (face) -10/17/16 Reported Meds & Prescriptions Reported Meds & Active Scripts Active No Active Prescriptions or Reported Medications Review of Systems Except as stated in HPI: all other systems reviewed are Neg General / Constitutional: No: Fever Eyes: No: Visual changes HENT: No: Headaches Cardiovascular: No: Chest Pain or Discomfort Respiratory: No: Shortness of Breath Gastrointestinal: No: Abdominal Pain Genitourinary: No: Dysuria Musculoskeletal: No: Pain Skin: Positive Lesions (abscess), No Rash Neurologic: No: Weakness Psychiatric: No: Depression Endocrine: No: Polydipsia Hematologic/Lymphatic: No: Easy Bruising Physical Exam Narrative GENERAL: Patient appears in mild distress. SKIN: Warm and dry. Normal color. Normal turgor. Patient has a walnut sized erythematous tender abscess to the left axilla with pointing. No lymphangitis. HEAD: Atraumatic. Normocephalic. EYES: Pupils equal and round. No scleral icterus. No injection or drainage. ENT: No nasal bleeding or discharge. Mucous membranes pink and moist. Pharynx is clear. Airway is patent. NECK: Trachea midline. Supple. CARDIOVASCULAR: Regular rate and rhythm. RESPIRATORY: No accessory muscle use. Clear to auscultation. Breath sounds equal bilaterally. MUSCULOSKELETAL: Extremities without clubbing, cyanosis, or edema. No obvious deformities. NEUROLOGICAL: Awake and alert. No obvious cranial nerve deficits. Motor grossly within normal limits. Five out of 5 muscle strength in the arms and legs. Normal speech. PSYCHIATRIC: Appropriate mood and affect; insight and judgment normal. Data Data Last Documented VS Vital Signs Date Time Temp Pulse Resp B/P (MAP) Pulse Ox O2 Delivery O2 Flow Rate FiO2 09/17/17 16:21 98.3 81 16 132/99 (110) 100 Orders Orders Lidocai-Epi 1%-1:100,000 Inj (Xylocaine- (09/17/17 16:30) MDM Medical Decision Making Medical Screen Exam Complete: Yes Emergency Medical Condition: Yes Differential Diagnosis Abscess. Cellulitis. MRSA. Narrative Course I&D of abscess is performed and packing is placed Culture is obtained and sent to the lab. Patient will continue on Bactrim twice a day 7 days. Patient is to return in 2 days for wound check and packing removal. Patient follow-up sooner as needed. Procedures Procedure Narrative After the risks and benefits were discussed the following procedure was performed: INCISION AND DRAINAGE OF ABSCESS: The area was prepped and was sterilely draped. A subcutaneous wheal of 1 % Xylocaine with epi with a total number 2 mL was used to anesthetize the area. The area was properly anesthetized. A number 11 scalpel was used to make a 0.5-cm incision across the area of the abscess. Cultures were obtained. The abscess was drained an irrigated with normal saline. Quarter inch iodoform packing was placed in the wound. Sterile dressing applied. Patient advised to have packing removed in two days. Diagnosis Primary Impression: Axillary abscess Patient Instructions: General Instructions Additional Instructions: I&D of abscess is performed and packing is placed Culture is obtained and sent to the lab. Patient will continue on Bactrim twice a day 7 days. Patient is to return in 2 days for wound check and packing removal. Patient follow-up sooner as needed. Med/Other Pt SpecificInfo: Prescription(s) given Scripts No Active Prescriptions or Reported Meds Disposition: 01 DISCHARGE HOME Condition: Stable Jaspreet De Los Santos Sep 17, 2017 16:52
[2017-09-17] MEDS ORDERED: IBUP-232 PO (16:53)
[2017-09-17] MEDS ORDERED: BACT800T5 PO (16:53)
== END 2017-09-17 17:14 | disposition home or self-care (01) ==
LOC: PHEFT 16:18
DX: L02.412 Cutaneous abscess of left axilla (principal); B95.62 Methicillin resistant Staphylococcus aureus infection as the cause of diseases classified elsewhere; F17.200 Nicotine dependence, unspecified, uncomplicated
CPT/HCPCS: 10061; 86403; 87070; 87186; 87205

== ENCOUNTER 2017-12-04 16:35 | Emergency (ER) | payer SELFPAY ==
[~2017-12-04] VITALS: Ht 170.2 cm; Wt 59.1 kg
[~2017-12-04 16:35] MED LIST changes: +IBUP-232 PO
[2017-12-04 16:37] VITALS: BP 118/58; PULSE 117; RESP 16; TEMP 99.7; O2SAT 99
[2017-12-04 20:29] LABS: BACTERIA, URINE MANY /hpf; BILIRUBIN, URINE NEG (NEG); BLOOD, URINE SMALL (NEG); GLUCOSE,URINE NEG (NEG); KETONE, URINE NEG (NEG); MUCUS URINE FEW /lpf (OCC); NITRITE,URINE POS (NEG); SQUAMOUS EPITHELIAL CELL URINE 2 /hpf (0-5); URINE COLOR YELLOW (YELLW/STRAW); URINE LEUKOCYTE ESTERASE LARGE (NEG); WHITE BLOOD CELL CLUMPS MANY
[2017-12-04 20:37] VITALS: BP 105/68; PULSE 102; RESP 16; TEMP 98.9; O2SAT 97
[2017-12-04] MEDS ORDERED: cefTRIAXone INJ 1,000 MG in SODIUM CHLORIDE 0.9% INJ 100 ML IV ONE (20:45)
[2017-12-04] MEDS ORDERED: KETOROLAC TROMETHAMINE 30 MG/ML (IVP) VIAL IV PUSH ONE (20:45)
[2017-12-04] MEDS ORDERED: PHENAZOPYRIDINE HCL 200 MG TAB PO ONE (20:45)
[2017-12-04] MEDS ORDERED: SODIUM CHLOR 0.9% 1000 ML INJ 1,000 ML IV ONE (20:45)
--- NOTE | 2017-12-04 20:48 | PD ---
HPI Chief Complaint: Flank/Kidney Pain Time Seen by Provider: 20:29 Travel History International Travel<30 days: No Contact w/Intl Traveler<30days: No Traveled to known affect area: No History of Present Illness HPI 27-year-old white female presents to emergency department with a one-week history of increased urinary frequency, dysuria followed by flank pain with some nausea and occasional vomiting. She missed to feeling warm at times but has not documented a fever. She denies any upper abdominal pain. Symptoms are moderate to severe. Worse with movement. Some relief with remaining still. She denies any vaginal discharge or abnormal bleeding. Denies . PFSH Past Medical History Narrative Medical ADHD, anxiety, depression, pyelonephritis, UTI Hx Anticoagulant Therapy: No ADHD: Yes Asthma: Yes ( A CHILD) Autoimmune Disease: No Blood Disorders: No Weight (Kg): 3 Anxiety: Yes Depression: Yes Cancer: No Cardiovascular Problems: No COPD: No Diabetes: No Diminished Hearing: No Endocrine: No Gastrointestinal Disorders: Yes Genitourinary: Yes (UTI) Headaches: No Immune Disorder: No Implanted Vascular Access Dvce: No Musculoskeletal: No Neurologic: No Psychiatric: Yes Reproductive: No Respiratory: Yes Immunizations Current: Yes Migraines: No Pneumonia: Yes Seizures: No Sleep Apnea: No Thyroid Disease: No Ulcer: No Tetanus Vaccination: < 5 Years ?: Not LMP: 3 weeks ago : 0 Para: 0 Past Surgical History Abdominal Surgery: No Appendectomy: No Cardiac Surgery: No Section: No Cholecystectomy: No Ear Surgery: No Endocrine Surgery: No Genitourinary Surgery: No Gynecologic Surgery: No Oral Surgery: Yes Thoracic Surgery: No Other Surgery: Yes (ROOT CANAL 03/23/2010, JAW SURGERY 2017) Social History Alcohol Use: Yes (OCCASIONALLY) Tobacco Use: Yes (1 PPD) Substance Use: Yes (OPIATES) Allergies-Medications (Allergen,Severity, Reaction): Coded Allergies: *MDRO Multi-Drug Resistant Organism (Verified Adverse Reaction, Unknown, 09/17/17) MRSA (face) -10/17/16 Reported Meds & Prescriptions Reported Meds & Active Scripts Active Ibuprofen 600 Mg Tab 600 Mg PO Q8H PRN Bactrim DS (Sulfamethoxazole-Trimethoprim) 800-160 Mg Tab 1 Tab PO BID Review of Systems Except as stated in HPI: all other systems reviewed are Neg Physical Exam Narrative GENERAL: Well-developed, well-nourished in no apparent distress. Nontoxic appearing. HEAD: Normocephalic, atraumatic. EYES: Pupils equal round and reactive. Extraocular motions intact. No scleral icterus. No injection or drainage. ENT: Nose clear. Throat without erythema, tonsillar hypertrophy or exudate. Uvula midline. Airway patent. NECK: Trachea midline. Supple, nontender, moves head freely. No central bony tenderness or spasm. CARDIOVASCULAR: Regular rate and rhythm without murmurs, gallops, or rubs. RESPIRATORY: Clear to auscultation. Breath sounds equal bilaterally. No wheezes , rales, or rhonchi. GASTROINTESTINAL: Abdomen soft, diffuse lower suprapubic tenderness and right flank tenderness, nondistended. No hepato-splenomegaly, or palpable masses. No guarding. EXTREMITIES: No clubbing, cyanosis, or edema. No joint tenderness. BACK: Nontender without deformity. Positive right flank tenderness. NEUROLOGICAL: Awake, alert and oriented x 3 .Cranial nerves grossly intact. Motor and sensory grossly within normal limits. Normal speech. Data Data Last Documented VS Vital Signs Date Time Temp Pulse Resp B/P (MAP) Pulse Ox O2 Delivery O2 Flow Rate FiO2 12/04/17 20:37 98.9 102 16 105/68 (80) 97 Room Air Orders Orders Urinalysis - C+S If Indicated (12/04/17 16:46) Complete Blood Count With Diff (12/04/17 16:46) Comprehensive Metabolic Panel (12/04/17 16:46) Ed Urine Pregnancytest Poc (12/04/17 16:46) Urine Culture (12/04/17 19:59) Sodium Chlor 0.9% 1000 Ml Inj (Ns 1000 M (12/04/17 20:45) Ketorolac Inj (Toradol Inj) (12/04/17 20:45) Ceftriaxone Inj (Rocephin Inj) (12/04/17 20:45) Phenazopyridine (Pyridium) (12/04/17 20:45) Labs Laboratory Tests Test 12/04/17 19:59 12/04/17 21:20 Urine Color YELLOW Urine Turbidity HAZY Urine pH 6.0 Urine Specific [place] 1.016 Urine Protein 30 mg/dL Urine Glucose (UA) NEG mg/dL Urine Ketones NEG mg/dL Urine Occult Blood SMALL Urine Nitrite POS Urine Bilirubin NEG Urine Urobilinogen LESS THAN 2.0 MG/DL Urine Leukocyte Esterase LARGE Urine RBC 4 /hpf Urine WBC /hpf Urine WBC Clumps MANY Urine Squamous Epithelial Cells 2 /hpf Urine Bacteria MANY /hpf Urine Mucus FEW /lpf Microscopic Urinalysis Comment CULTURE INDICATED White Blood Count 17.3 TH/MM3 Red Blood Count 4.16 MIL/MM3 Hemoglobin 11.8 GM/DL Hematocrit 35.1 % Mean Corpuscular Volume 84.3 FL Mean Corpuscular Hemoglobin 28.4 PG Mean Corpuscular Hemoglobin Concent 33.7 % Red Cell Distribution Width 14.7 % Platelet Count 397 TH/MM3 Mean Platelet Volume 7.5 FL Neutrophils (%) (Auto) 83.2 % Lymphocytes (%) (Auto) 9.8 % Monocytes (%) (Auto) 6.5 % Eosinophils (%) (Auto) 0.3 % Basophils (%) (Auto) 0.2 % Neutrophils # (Auto) 14.4 TH/MM3 Lymphocytes # (Auto) 1.7 TH/MM3 Monocytes # (Auto) 1.1 TH/MM3 Eosinophils # (Auto) 0.1 TH/MM3 Basophils # (Auto) 0.0 TH/MM3 CBC Comment DIFF FINAL Differential Comment Blood Urea Nitrogen 9 MG/DL Creatinine 0.70 MG/DL Random Glucose 113 MG/DL Total Protein 8.2 GM/DL Albumin 3.2 GM/DL Calcium Level 8.8 MG/DL Alkaline Phosphatase 97 U/L Aspartate Amino Transf (AST/SGOT) 13 U/L Alanine Aminotransferase (ALT/SGPT) 16 U/L Total Bilirubin 1.0 MG/DL Sodium Level 132 MEQ/L Potassium Level 3.8 MEQ/L Chloride Level 97 MEQ/L Carbon Dioxide Level 27.4 MEQ/L Anion Gap 8 MEQ/L Estimat Glomerular Filtration Rate 102 ML/MIN [facility] Medical Decision Making Medical Screen Exam Complete: Yes Emergency Medical Condition: Yes Medical Record Reviewed: Yes Interpretation(s) CBC & BMP Diagram 12/04/17 21:20 Total Protein 8.2, Albumin 3.2 L, Calcium Level 8.8, Alkaline Phosphatase 97, Aspartate Amino Transf (AST/SGOT) 13 L, Alanine Aminotransferase (ALT/SGPT) 16, Total Bilirubin 1.0 Laboratory Tests Test 12/04/17 19:59 12/04/17 21:20 Urine Color YELLOW Urine Turbidity HAZY Urine pH 6.0 Urine Specific [place] 1.016 Urine Protein 30 mg/dL Urine Glucose (UA) NEG mg/dL Urine Ketones NEG mg/dL Urine Occult Blood SMALL Urine Nitrite POS Urine Bilirubin NEG Urine Urobilinogen LESS THAN 2.0 MG/DL Urine Leukocyte Esterase LARGE Urine RBC 4 /hpf Urine WBC /hpf Urine WBC Clumps MANY Urine Squamous Epithelial Cells 2 /hpf Urine Bacteria MANY /hpf Urine Mucus FEW /lpf Microscopic Urinalysis Comment CULTURE INDICATED White Blood Count 17.3 TH/MM3 Red Blood Count 4.16 MIL/MM3 Hemoglobin 11.8 GM/DL Hematocrit 35.1 % Mean Corpuscular Volume 84.3 FL Mean Corpuscular Hemoglobin 28.4 PG Mean Corpuscular Hemoglobin Concent 33.7 % Red Cell Distribution Width 14.7 % Platelet Count 397 TH/MM3 Mean Platelet Volume 7.5 FL Neutrophils (%) (Auto) 83.2 % Lymphocytes (%) (Auto) 9.8 % Monocytes (%) (Auto) 6.5 % Eosinophils (%) (Auto) 0.3 % Basophils (%) (Auto) 0.2 % Neutrophils # (Auto) 14.4 TH/MM3 Lymphocytes # (Auto) 1.7 TH/MM3 Monocytes # (Auto) 1.1 TH/MM3 Eosinophils # (Auto) 0.1 TH/MM3 Basophils # (Auto) 0.0 TH/MM3 CBC Comment DIFF FINAL Differential Comment Blood Urea Nitrogen 9 MG/DL Creatinine 0.70 MG/DL Random Glucose 113 MG/DL Total Protein 8.2 GM/DL Albumin 3.2 GM/DL Calcium Level 8.8 MG/DL Alkaline Phosphatase 97 U/L Aspartate Amino Transf (AST/SGOT) 13 U/L Alanine Aminotransferase (ALT/SGPT) 16 U/L Total Bilirubin 1.0 MG/DL Sodium Level 132 MEQ/L Potassium Level 3.8 MEQ/L Chloride Level 97 MEQ/L Carbon Dioxide Level 27.4 MEQ/L Anion Gap 8 MEQ/L Estimat Glomerular Filtration Rate 102 ML/MIN Differential Diagnosis Differential diagnoses: Pyelonephritis, UTI, vaginitis, appendicitis, colitis Narrative Course IV access is obtained. Routine laboratory tests including CBC, chemistry, UA, have been ordered. Patient does not look toxic. She is given Rocephin 1 g IV, 200 mg of Pyridium by mouth, The patient is taking by mouth fluids without vomiting. She feels much improved. This is right pyelonephritis Diagnosis Primary Impression: right pyelonephritis Patient Instructions: General Instructions Departure Forms: Tests/Procedures, Work Release Additional Instructions: Rest. Increase fluids. Macrobid, diclofenac and Pyridium. Follow-up with a primary care doctor in 2-3 days for recheck. Return to the ER for any problems. Med/Other Pt SpecificInfo: Prescription(s) given Disposition: 01 DISCHARGE HOME Condition: Stable Julien Niño Dec 04, 2017 20:48
[2017-12-04 21:48] LABS: AUTOMATED NEUTROPHIL # 14.4 TH/MM3 (1.8-7.7); BASOPHIL % 0.2 % (0.0-2.0); EOSINOPHIL # 0.1 TH/MM3 (0-0.4); EOSINOPHIL % 0.3 % (0.0-4.0); HEMATOCRIT 35.1 % (35.0-46.0); HEMOGLOBIN 11.8 GM/DL (11.6-15.3); LYMPH % 9.8 % (9.0-44.0); LYMPHOCYTE # 1.7 TH/MM3 (1.0-4.8); MEAN CELL VOLUME 84.3 FL (80.0-100.0); MEAN CORPUSCULAR HEMOGLOBIN 28.4 PG (27.0-34.0); MEAN CORPUSCULAR HGB CONC 33.7 % (32.0-36.0); MEAN PLATELET VOLUME 7.5 FL (7.0-11.0); MONO % 6.5 % (0.0-8.0); MONOCYTE # 1.1 TH/MM3 (0-0.9); NEUT % 83.2 % (16.0-70.0); PLATELET COUNT 397 TH/MM3 (150-450); RED BLOOD COUNT 4.16 MIL/MM3 (4.00-5.30); RED CELL DISTRIBUTION WIDTH 14.7 % (11.6-17.2); WHITE BLOOD COUNT 17.3 TH/MM3 (4.0-11.0)
[2017-12-04 22:21] LABS: ALBUMIN 3.2 GM/DL (3.4-5.0); ALT (GPT) 16 U/L (10-53); AST (GOT) 13 U/L (15-37); BICARBONATE 27.4 MEQ/L (21.0-32.0); BLOOD UREA NITROGEN 9 MG/DL (7-18); CALCIUM 8.8 MG/DL (8.5-10.1); CHLORIDE 97 MEQ/L (98-107); GLOMERULAR FILTRATION RATE 102 ML/MIN (>89); GLUCOSE,RANDOM 113 MG/DL (74-106); SODIUM (NA) 132 MEQ/L (136-145)
[2017-12-04 22:22] LABS: ALKALINE PHOSPHATASE 97 U/L (45-117); TOTAL PROTEIN 8.2 GM/DL (6.4-8.2)
[2017-12-04] MEDS ORDERED: DICL75TA PO (22:50)
[2017-12-04] MEDS ORDERED: ZOFR8TAB4 SL (22:50)
[2017-12-04] MEDS ORDERED: MACR100C2 PO (22:50)
[2017-12-04] MEDS ORDERED: PHEN0.4T PO (22:50)
== END 2017-12-04 23:09 | disposition home or self-care (01) ==
LOC: NEPD 16:35
DX: N12 Tubulo-interstitial nephritis, not specified as acute or chronic (principal); B96.20 Unspecified Escherichia coli [E. coli] as the cause of diseases classified elsewhere; J45.909 Unspecified asthma, uncomplicated; F32.9 Major depressive disorder, single episode, unspecified; F17.210 Nicotine dependence, cigarettes, uncomplicated
CPT/HCPCS: 80053; 81001; 84703; 85025; 87077; 87086; 87186; 96374; 96375; 99283; J0696; J1885; J7030

== ENCOUNTER 2018-01-12 02:06 | Emergency (ER) | payer SELFPAY ==
[~2018-01-12] VITALS: Ht 170.2 cm; Wt 61.4 kg
[~2018-01-12 02:06] MED LIST changes: +DICL75TA PO; +MACR100C2 PO; +PHEN0.4T PO; +ZOFR8TAB4 SL
[2018-01-12 03:15] VITALS: BP 114/73; PULSE 95; RESP 16; TEMP 99.2; O2SAT 98
[2018-01-12] MEDS ORDERED: SULFAMETHOXAZOLE-TRIMETHOPRIM DS 800-160 MG TAB PO ONE (05:30)
[2018-01-12] MEDS ORDERED: CEPHALEXIN MONOHYDRATE 500 MG CAP PO ONE (05:30)
[2018-01-12] MEDS ORDERED: CEPH-460 PO (05:31)
[2018-01-12] MEDS ORDERED: BACT800T5 PO (05:31)
--- NOTE | 2018-01-12 05:35 | PD ---
HPI Chief Complaint: Skin Problem Time Seen by Provider: 05:13 Travel History International Travel<30 days: No Contact w/Intl Traveler<30days: No Traveled to known affect area: No History of Present Illness HPI Examined in the presence of a female nurse at all times. 27-year-old female with history of IV heroin abuse presents for evaluation of an abscess in the left abdominal wall. It started a few days ago. She reports a throbbing pain associated with it, constant, worse with palpation. She reports that she frequently uses a superficial abdominal wall vein for injection purposes. Denies any drainage, fevers, chills, nausea, vomiting, chest pain, shortness of breath, palpitations. No other complaints at this time. PFSH Past Medical History Hx Anticoagulant Therapy: No ADHD: Yes Asthma: Yes ( A CHILD) Autoimmune Disease: No Blood Disorders: No Weight (Kg): 3 Anxiety: Yes Depression: Yes Cancer: No Cardiovascular Problems: No COPD: No Diabetes: No Diminished Hearing: No Endocrine: No Gastrointestinal Disorders: Yes Genitourinary: Yes (UTI) Headaches: No Immune Disorder: No Implanted Vascular Access Dvce: No Musculoskeletal: No Neurologic: No Psychiatric: Yes Reproductive: No Respiratory: Yes Immunizations Current: Yes Migraines: No Pneumonia: Yes Seizures: No Sleep Apnea: No Thyroid Disease: No Ulcer: No ?: Not LMP: 12/08/2017 : 0 Para: 0 Past Surgical History Abdominal Surgery: No Appendectomy: No Cardiac Surgery: No Section: No Cholecystectomy: No Ear Surgery: No Endocrine Surgery: No Genitourinary Surgery: No Gynecologic Surgery: No Oral Surgery: Yes Thoracic Surgery: No Other Surgery: Yes (ROOT CANAL 03/23/2010, JAW SURGERY 2016) Social History Alcohol Use: Yes (OCCASIONALLY) Tobacco Use: Yes (1 PPD) Substance Use: Yes (OPIATES) Allergies-Medications (Allergen,Severity, Reaction): Coded Allergies: *MDRO Multi-Drug Resistant Organism (Verified Adverse Reaction, Unknown, 09/17/17) MRSA (face) -10/17/16 Reported Meds & Prescriptions Reported Meds & Active Scripts Active Keflex (Cephalexin) 500 Mg Cap 500 Mg PO Q8H Bactrim DS (Sulfamethoxazole-Trimethoprim) 800-160 Mg Tab 1 Tab PO BID Review of Systems Except as stated in HPI: all other systems reviewed are Neg Physical Exam Narrative GENERAL: Disheveled female no acute distress SKIN: Warm and dry. 3 cm fluctuant abscess in the left anterior abdominal wall with mild surrounding cellulitic changes. HEAD: Atraumatic. Normocephalic. EYES: Pupils equal and round. No scleral icterus. No injection or drainage. ENT: No nasal bleeding or discharge. Mucous membranes pink and moist. NECK: Trachea midline. No JVD. CARDIOVASCULAR: Regular rate and rhythm. No murmur appreciated. RESPIRATORY: No accessory muscle use. Clear to auscultation. Breath sounds equal bilaterally. GASTROINTESTINAL: Abdomen soft, non-tender, nondistended. Hepatic and splenic margins not palpable. MUSCULOSKELETAL: No obvious deformities. NEUROLOGICAL: Awake and alert. No obvious cranial nerve deficits. Motor grossly within normal limits. Normal speech. Data Data Last Documented VS Vital Signs Date Time Temp Pulse Resp B/P (MAP) Pulse Ox O2 Delivery O2 Flow Rate FiO2 01/12/18 03:15 99.2 95 16 114/73 (87) 98 Room Air Orders Orders Ed Discharge Order (01/12/18 05:29) Sulfamet-Trimeth Ds 800-160 Mg (Bactrim (01/12/18 05:30) Cephalexin (Keflex) (01/12/18 05:30) Wound Culture And Gram Stain (01/12/18 05:29) MDM Medical Decision Making Medical Screen Exam Complete: Yes Emergency Medical Condition: Yes Medical Record Reviewed: Yes Differential Diagnosis Cutaneous abscess, cellulitis, infected cyst Narrative Course The patient has an abscess on the abdominal wall secondary to IV drug abuse. Plan is for incision and drainage for which he verbally consents. Wound culture was obtained. Pending wound culture results the patient will be started on Bactrim and Keflex. Procedures Procedure Narrative INCISION AND DRAINAGE OF ABSCESS: The area was prepped and was sterilely draped. A subcutaneous wheal of 1% Xylocaine with epinephrine with a total number 10 mL was used to anesthetize the area. The area was properly anesthetized. A number 11 scalpel was used to make a 1-cm incision across the area of the abscess. Cultures were obtained. The abscess was drained an irrigated with normal saline. Diagnosis Primary Impression: Abdominal wall abscess Additional Instructions: Medication as prescribed. Warm compresses several times a day 15 minutes at a time. Return for any acutely new or worsening symptoms. Med/Other Pt SpecificInfo: Prescription(s) given, Wound Care Scripts Cephalexin (Keflex) 500 Mg Cap 500 MG PO Q8H for Infection, #30 CAP 0 Refills Prov: Iris Sin MD 01/12/18 Sulfamethoxazole-Trimethoprim (Bactrim DS) 800-160 Mg Tab 1 TAB PO BID for Infection, #20 TAB 0 Refills Prov: Iris Sin MD 01/12/18 Disposition: 01 DISCHARGE HOME Condition: Stable Yassine Romero Jan 12, 2018 05:35
== END 2018-01-12 06:29 | disposition home or self-care (01) ==
LOC: NEPD 02:06
DX: L02.211 Cutaneous abscess of abdominal wall (principal); B95.62 Methicillin resistant Staphylococcus aureus infection as the cause of diseases classified elsewhere; F11.10 Opioid abuse, uncomplicated; F17.200 Nicotine dependence, unspecified, uncomplicated
CPT/HCPCS: 10060; 86403; 87070; 87186

== ENCOUNTER 2018-02-28 01:43 | Observation (INO) | payer SELFPAY ==
[2018-02-28] VITALS (10 sets, daily range): BP systolic 86–105; BP diastolic 53–74; PULSE 69–94; RESP 16–20; TEMP 97.5–98.8; O2SAT 94–100
[~2018-02-28] VITALS: Ht 170.2 cm; Wt 63.0 kg
[~2018-02-28 01:43] MED LIST changes: +CEPH-460 PO; -DICL75TA PO; -IBUP-232 PO; -MACR100C2 PO; -PHEN0.4T PO; -ZOFR8TAB4 SL
--- NOTE | 2018-02-28 02:26 | PD ---
HPI Chief Complaint: Skin Problem Time Seen by Provider: 02:02 Travel History International Travel<30 days: No Contact w/Intl Traveler<30days: No Traveled to known affect area: No History of Present Illness HPI The patient is a 27 year old female who presents to the [facility] emergency department with a history of noticing a lump on the left lateral thigh that began approximately 2-3 days ago. She reports that she last injected heroin in the left leg approximately a week ago. The patient reports that she last used heroin a few hours prior to arrival. She reports that she also occasionally uses methamphetamine. She reports that today she has had a subjective fever. She reports having chills. She denies having any chest pain , chest pressure, or shortness of breath. She denies having any abdominal pain , nausea, vomiting, or diarrhea. The patient reports having a history of hepatitis C. She reports having a history of recurrent skin infections requiring incision and drainage. On review of systems otherwise, the patient denies having any cough, neck pain, urinary symptoms, or neurologic symptoms. The patient reports that she has nasal congestion from being around cats and she has a cat allergy. LMP: 2 weeks ago [facility] Past Medical History Narrative Medical The patient's past medical history is significant for an allergy to cats, IV drug use, hepatitis C, recurrent skin infections, childhood asthma Hx Anticoagulant Therapy: No ADHD: Yes Asthma: Yes ( A CHILD) Autoimmune Disease: No Blood Disorders: No Weight (Kg): 3 Anxiety: Yes Depression: Yes Cancer: No Cardiovascular Problems: No COPD: No Diabetes: No Diminished Hearing: No Endocrine: No Gastrointestinal Disorders: Yes Genitourinary: Yes (UTI) Headaches: No Immune Disorder: No Implanted Vascular Access Dvce: No Musculoskeletal: No Neurologic: No Psychiatric: Yes Reproductive: No Respiratory: Yes Immunizations Current: Yes Migraines: No Pneumonia: Yes Seizures: No Sleep Apnea: No Thyroid Disease: No Ulcer: No Tetanus Vaccination: < 5 Years Influenza Vaccination: No ?: Not LMP: unsure "its been a while" : 0 Para: 0 Past Surgical History Narrative Surgical The patient's past surgical history is significant for dental extractions, general surgery related to a jaw infection, multiple incision and drainages. Abdominal Surgery: No Appendectomy: No Cardiac Surgery: No Section: No Cholecystectomy: No Ear Surgery: No Endocrine Surgery: No Genitourinary Surgery: No Gynecologic Surgery: No Oral Surgery: Yes Thoracic Surgery: No Other Surgery: Yes (ROOT CANAL 03/23/2010, JAW SURGERY 2017) Social History Alcohol Use: Yes (OCCASIONALLY) Tobacco Use: Yes (1 PPD) Substance Use: Yes (IV heroin, methamphetamine) Allergies-Medications (Allergen,Severity, Reaction): Coded Allergies: *MDRO Multi-Drug Resistant Organism (Verified Adverse Reaction, Unknown, ) MRSA (face) -10/17/16 Reported Meds & Prescriptions Reported Meds & Active Scripts Active No Active Prescriptions or Reported Medications Review of Systems Except as stated in HPI: all other systems reviewed are Neg General / Constitutional: Positive: Fever, Chills Eyes: No: Visual changes HENT: Positive: Congestion, No: Headaches Cardiovascular: No: Chest Pain or Discomfort, Dyspnea on exertion Respiratory: No: Cough, Shortness of Breath Gastrointestinal: No: Nausea, Vomiting, Diarrhea, Abdominal Pain Genitourinary: No: Dysuria Musculoskeletal: No: Pain Skin: Positive Lumps, No Rash Neurologic: No: Weakness, Focal Abnormalities, Change in Mentation, Slurred Speech, Sensory Disturbance Psychiatric: No: Depression Endocrine: No: Polydipsia Hematologic/Lymphatic: No: Easy Bruising Physical Exam Narrative General: The patient is a well-developed well-nourished female, slow to answer questions on examination, apparently intoxicated. Head and Neck exam: Head is normocephalic atraumatic. Eyes: EOMI, pupils are equal round and reactive to light. Nose: Midline septum with pink mucous membranes Mouth: Dentition unremarkable. Moist mucus membranes. Posterior oropharynx is not erythematous. No tonsillar hypertrophy. Uvula midline. Airway patent. Neck: No palpable lymphadenopathy. No nuchal rigidity. No thyromegaly. Cardiovascular: Regular rate and rhythm without murmurs, gallops, or rubs. No pulse deficit to the extremities on simultaneous auscultation and palpation of her radial artery. Lungs: Clear to auscultation bilaterally. No wheezes, rhonchi, or rales. Abdomen: Soft, without tenderness to palpation in all 4 quadrants of the abdomen. No guarding, rebound, or rigidity. Normal bowel sounds are audible. No tenderness on palpation of McBurney's point. Extremities: No clubbing, cyanosis, or edema. 2+ pulses in all 4 extremities. No calf tenderness on palpation. Back: No spinous process tenderness to palpation. No step-off or crepitus. No erythema or ecchymosis. No costovertebral angle tenderness to palpation. Neurologic Exam: Grossly nonfocal. Skin Exam: The patient's area of interest is the left lateral thigh, the patient has an area of redness and swelling. The area of redness is approximately 6 cm in greatest dimension with a central area of fluctuance and pointing consistent with a central abscess. Intact skin that is warm and dry. Data Data Last Documented VS Vital Signs Date Time Temp Pulse Resp B/P (MAP) Pulse Ox O2 Delivery O2 Flow Rate FiO2 02/28/18 04:12 86 18 102/65 (77) 99 Room Air 02/28/18 01:49 97.5 Orders Orders Complete Blood Count With Diff (02/28/18 02:04) Comprehensive Metabolic Panel (02/28/18 02:04) Blood Culture (02/28/18 02:04) C-Reactive Protein (Crp) (02/28/18 02:04) Lipase (02/28/18 02:04) Urinalysis - C+S If Indicated (02/28/18 02:04) Westergren Sedimentation Rate (02/28/18 02:04) Magnesium (Mg) (02/28/18 02:04) Iv Access Insert/Monitor (02/28/18 02:04) Ecg Monitoring (02/28/18 02:04) Oximetry (02/28/18 02:04) Ed Urine Pregnancytest Poc (02/28/18 02:04) Drug Screen, Random Urine (02/28/18 02:04) Alcohol (Ethanol) (02/28/18 02:04) Lactic Acid Sepsis Protocol (02/28/18 02:04) Piperacil-Tazo 3.375 Gm Premix (Zosyn 3. (02/28/18 02:30) Vancomycin Inj (Vancomycin Inj) (02/28/18 02:30) Sodium Chlor 0.9% 1000 Ml Inj (Ns 1000 M (02/28/18 02:30) Wound Culture And Gram Stain (02/28/18 03:30) Sodium Chlor 0.9% 1000 Ml Inj (Ns 1000 M (02/28/18 03:45) Admit Order (Ed Use Only) (02/28/18 04:36) Urine Culture (02/28/18 04:36) Clindamycin 900 Mg/Ns Premix (Cleocin 90 (02/28/18 08:30) Place In Observation (02/28/18 ) Vital Signs (Adult) Q4H (02/28/18 04:44) Activity Oob With Assistance (02/28/18 04:44) Diet Regular Basic (02/28/18 Breakfast) Sodium Chlor 0.9% 1000 Ml Inj (Ns 1000 M (02/28/18 05:00) Sodium Chloride 0.9% Flush (Ns Flush) (02/28/18 04:45) Sodium Chloride 0.9% Flush (Ns Flush) (02/28/18 09:00) Acetaminophen (Tylenol) (02/28/18 04:45) Ondansetron Inj (Zofran Inj) (02/28/18 04:45) Basic Metabolic Panel (Bmp) (03/01/18 06:00) Complete Blood Count With Diff (03/01/18 06:00) Naloxone Inj (Narcan Inj) (02/28/18 04:45) Docusate Sodium-Senna (Rimma-Colace) (02/28/18 09:00) Magnesium Hydroxide Liq (Milk Of Magnesi (02/28/18 04:45) Sennosides (Senokot) (02/28/18 04:45) Bisacodyl Supp (Dulcolax Supp) (02/28/18 04:45) Lactulose Liq (Lactulose Liq) (02/28/18 04:45) Morphine Inj (Morphine Inj) (02/28/18 04:45) Labs Laboratory Tests Test 02/28/18 01:35 02/28/18 04:36 White Blood Count 12.0 TH/MM3 Red Blood Count 3.75 MIL/MM3 Hemoglobin 10.7 GM/DL Hematocrit 32.1 % Mean Corpuscular Volume 85.7 FL Mean Corpuscular Hemoglobin 28.4 PG Mean Corpuscular Hemoglobin Concent 33.2 % Red Cell Distribution Width 15.1 % Platelet Count 315 TH/MM3 Mean Platelet Volume 7.8 FL Neutrophils (%) (Auto) 75.2 % Lymphocytes (%) (Auto) 17.2 % Monocytes (%) (Auto) 5.2 % Eosinophils (%) (Auto) 1.8 % Basophils (%) (Auto) 0.6 % Neutrophils # (Auto) 9.0 TH/MM3 Lymphocytes # (Auto) 2.1 TH/MM3 Monocytes # (Auto) 0.6 TH/MM3 Eosinophils # (Auto) 0.2 TH/MM3 Basophils # (Auto) 0.1 TH/MM3 CBC Comment DIFF FINAL Differential Comment Erythrocyte Sedimentation Rate 37 mm/hr Blood Urea Nitrogen 18 MG/DL Creatinine 0.73 MG/DL Random Glucose 90 MG/DL Total Protein 7.7 GM/DL Albumin 3.6 GM/DL Calcium Level 8.8 MG/DL Magnesium Level 2.0 MG/DL Alkaline Phosphatase 72 U/L Aspartate Amino Transf (AST/SGOT) 11 U/L Alanine Aminotransferase (ALT/SGPT) 19 U/L Total Bilirubin 0.6 MG/DL Sodium Level 140 MEQ/L Potassium Level 3.8 MEQ/L Chloride Level 102 MEQ/L Carbon Dioxide Level 30.5 MEQ/L Anion Gap 8 MEQ/L Estimat Glomerular Filtration Rate 97 ML/MIN Lactic Acid Level 1.1 mmol/L C-Reactive Protein 2.15 MG/DL Lipase 77 U/L Ethyl Alcohol Level LESS THAN 3 MG/DL Urine Color LIGHT-YELLOW Urine Turbidity HAZY Urine pH 8.0 Urine Specific [place] 1.021 Urine Protein TRACE mg/dL Urine Glucose (UA) NEG mg/dL Urine Ketones NEG mg/dL Urine Occult Blood NEG Urine Nitrite NEG Urine Bilirubin NEG Urine Urobilinogen LESS THAN 2.0 MG/DL Urine Leukocyte Esterase SMALL Urine RBC 3 /hpf Urine WBC 15 /hpf Urine Squamous Epithelial Cells 7 /hpf Urine Transitional Epithelial Cells <1 /hpf Urine Amorphous Sediment RARE Urine Bacteria RARE /hpf Urine Mucus FEW /lpf Urine Yeast (Budding) MANY Microscopic Urinalysis Comment CULTURE INDICATED Urine Opiates Screen POS Urine Barbiturates Screen NEG Urine Amphetamines Screen NEG Urine Benzodiazepines Screen NEG Urine Cocaine Screen POS Urine Cannabinoids Screen POS MDM Medical Decision Making Medical Screen Exam Complete: Yes Emergency Medical Condition: Yes Medical Record Reviewed: Yes Differential Diagnosis Cellulitis, versus abscess, versus sepsis related to skin infection, versus bacteremia Narrative Course During the course of the patient's emergency department visit, the patient's history, examination, and differential diagnosis were reviewed with the patient. The patient was placed on a phototypesetting equipment monitor with oximetry and frequent blood pressure monitoring. The patient had IV access obtained and blood work sent for analysis. The patient was initially provided normal saline 1 L IV fluid bolus, Zosyn 3.375 g IV, vancomycin 1 g IV. The patient's laboratory studies were reviewed and remarkable for A white count of 12, hemoglobin 10.7, platelets 315 was 75.2 neutrophils, sedimentation rate is elevated at 37, CMP is unremarkable, C-reactive protein is elevated at 2.15, lipase 77, lactic acid 1.1, alcohol level is less than 3, urine drug screen is positive for opiates, cocaine, cannabinoids. Urinalysis shows small leukocyte esterase 15 WBCs, rare bacteria, culture indicated. The patient's prior blood pressures were reviewed in comparison to her blood pressure during this current evaluation and the patient's blood pressure is currently lower suspicious for sepsis. The patient will be continued on normal saline IV fluids resuscitation. The patient will be admitted to the hospital for continued evaluation and treatment. The patient's results were discussed with the patient, including the plan of care. I explained that further testing and/ or monitoring is indicated based on the patient's history, examination, and/ or laboratory findings. Therefore, I recommended admission for additional evaluation. The patient expressed understanding and was agreeable with this plan. The patient was admitted to the hospital in stable condition and sent to a bed under the care of the [facility] service. Sepsis Criteria SIRS Criteria (2 or more): Heart rate over 90, WBC > 36959, < 4000 or > 10% bands Sepsis Criteria (SIRS+source): Infect source susp/known Physician Communication Physician Communication The patient's case including history, pertinent physical examination findings, and laboratory studies were discussed with Dr. Rubio. It was agreed that the patient would be admitted to the [facility] service. Diagnosis Primary Impression: Cellulitis and abscess of left leg Additional Impression: SIRS (systemic inflammatory response syndrome) Admitting Information Admitting Physician Requests: Admit Scripts No Active Prescriptions or Reported Meds Faby Lu MD Feb 28, 2018 02:26
[2018-02-28] MEDS ORDERED: PIPERACIL-TAZO 3.375 GM PREMIX 50 ML IV ONE (02:30)
[2018-02-28] MEDS ORDERED: VANCOMYCIN INJ 1,000 MG in SODIUM CHLOR 0.9% 250 ML INJ 250 ML IV ONE (02:30)
[2018-02-28] MEDS ORDERED: SODIUM CHLOR 0.9% 1000 ML INJ 1,000 ML IV ONE ×2 (02:30→03:45)
[2018-02-28 03:07] LABS: BASOPHIL # 0.1 TH/MM3 (0-0.2); BASOPHIL % 0.6 % (0.0-2.0); EOSINOPHIL # 0.2 TH/MM3 (0-0.4); EOSINOPHIL % 1.8 % (0.0-4.0); HEMATOCRIT 32.1 % (35.0-46.0); HEMOGLOBIN 10.7 GM/DL (11.6-15.3); LYMPH % 17.2 % (9.0-44.0); LYMPHOCYTE # 2.1 TH/MM3 (1.0-4.8); MEAN CELL VOLUME 85.7 FL (80.0-100.0); MEAN CORPUSCULAR HEMOGLOBIN 28.4 PG (27.0-34.0); MEAN CORPUSCULAR HGB CONC 33.2 % (32.0-36.0); MEAN PLATELET VOLUME 7.8 FL (7.0-11.0); MONO % 5.2 % (0.0-8.0); MONOCYTE # 0.6 TH/MM3 (0-0.9); NEUT % 75.2 % (16.0-70.0); PLATELET COUNT 315 TH/MM3 (150-450); RED BLOOD COUNT 3.75 MIL/MM3 (4.00-5.30); RED CELL DISTRIBUTION WIDTH 15.1 % (11.6-17.2)
[2018-02-28 03:19] LABS: ALBUMIN 3.6 GM/DL (3.4-5.0); ALT (GPT) 19 U/L (10-53); AST (GOT) 11 U/L (15-37); BICARBONATE 30.5 MEQ/L (21.0-32.0); BLOOD UREA NITROGEN 18 MG/DL (7-18); C-REACTIVE PROTEIN 2.15 MG/DL (0.00-0.30); CALCIUM 8.8 MG/DL (8.5-10.1); CHLORIDE 102 MEQ/L (98-107); CREATININE 0.73 MG/DL (0.50-1.00); GLOMERULAR FILTRATION RATE 97 ML/MIN (>89); GLUCOSE,RANDOM 90 MG/DL (74-106); SODIUM (NA) 140 MEQ/L (136-145)
[2018-02-28 03:22] LABS: ALKALINE PHOSPHATASE 72 U/L (45-117); TOTAL BILIRUBIN ADULT 0.6 MG/DL (0.2-1.0); TOTAL PROTEIN 7.7 GM/DL (6.4-8.2)
--- NOTE | 2018-02-28 04:04 | PD ---
Physical Exam Time Seen by Provider: 04:04 Data Data Last Documented VS Vital Signs Date Time Temp Pulse Resp B/P (MAP) Pulse Ox O2 Delivery O2 Flow Rate FiO2 02/28/18 03:36 92 18 90/54 (66) 98 Room Air 02/28/18 01:49 97.5 Orders Orders Complete Blood Count With Diff (02/28/18 02:04) Comprehensive Metabolic Panel (02/28/18 02:04) Blood Culture (02/28/18 02:04) C-Reactive Protein (Crp) (02/28/18 02:04) Lipase (02/28/18 02:04) Urinalysis - C+S If Indicated (02/28/18 02:04) Westergren Sedimentation Rate (02/28/18 02:04) Magnesium (Mg) (02/28/18 02:04) Iv Access Insert/Monitor (02/28/18 02:04) Ecg Monitoring (02/28/18 02:04) Oximetry (02/28/18 02:04) Ed Urine Pregnancytest Poc (02/28/18 02:04) Drug Screen, Random Urine (02/28/18 02:04) Alcohol (Ethanol) (02/28/18 02:04) Lactic Acid Sepsis Protocol (02/28/18 02:04) Piperacil-Tazo 3.375 Gm Premix (Zosyn 3. (02/28/18 02:30) Vancomycin Inj (Vancomycin Inj) (02/28/18 02:30) Sodium Chlor 0.9% 1000 Ml Inj (Ns 1000 M (02/28/18 02:30) Wound Culture And Gram Stain (02/28/18 03:30) Sodium Chlor 0.9% 1000 Ml Inj (Ns 1000 M (02/28/18 03:45) Labs Laboratory Tests Test 02/28/18 01:35 White Blood Count 12.0 TH/MM3 Red Blood Count 3.75 MIL/MM3 Hemoglobin 10.7 GM/DL Hematocrit 32.1 % Mean Corpuscular Volume 85.7 FL Mean Corpuscular Hemoglobin 28.4 PG Mean Corpuscular Hemoglobin Concent 33.2 % Red Cell Distribution Width 15.1 % Platelet Count 315 TH/MM3 Mean Platelet Volume 7.8 FL Neutrophils (%) (Auto) 75.2 % Lymphocytes (%) (Auto) 17.2 % Monocytes (%) (Auto) 5.2 % Eosinophils (%) (Auto) 1.8 % Basophils (%) (Auto) 0.6 % Neutrophils # (Auto) 9.0 TH/MM3 Lymphocytes # (Auto) 2.1 TH/MM3 Monocytes # (Auto) 0.6 TH/MM3 Eosinophils # (Auto) 0.2 TH/MM3 Basophils # (Auto) 0.1 TH/MM3 CBC Comment DIFF FINAL Differential Comment Erythrocyte Sedimentation Rate 37 mm/hr Blood Urea Nitrogen 18 MG/DL Creatinine 0.73 MG/DL Random Glucose 90 MG/DL Total Protein 7.7 GM/DL Albumin 3.6 GM/DL Calcium Level 8.8 MG/DL Magnesium Level 2.0 MG/DL Alkaline Phosphatase 72 U/L Aspartate Amino Transf (AST/SGOT) 11 U/L Alanine Aminotransferase (ALT/SGPT) 19 U/L Total Bilirubin 0.6 MG/DL Sodium Level 140 MEQ/L Potassium Level 3.8 MEQ/L Chloride Level 102 MEQ/L Carbon Dioxide Level 30.5 MEQ/L Anion Gap 8 MEQ/L Estimat Glomerular Filtration Rate 97 ML/MIN Lactic Acid Level 1.1 mmol/L C-Reactive Protein 2.15 MG/DL Lipase 77 U/L Ethyl Alcohol Level LESS THAN 3 MG/DL MDM Medical Record Reviewed: Yes Supervised Visit with TERELL: No Procedures Procedure Narrative INCISION AND DRAINAGE OF ABSCESS: The area was prepped and was sterilely draped. Topical ethyl chloride was used to anesthetize the area. The area was properly anesthetized. A number 15 scalpel was used to make a 1-cm incision across the area of the abscess. Cultures were obtained. The abscess was drained an irrigated with normal saline. Sterile dressing applied. Patient tolerated this well. Scripts No Active Prescriptions or Reported Meds Condition: Stable Demetra Khan Feb 28, 2018 04:04
[2018-02-28] MEDS ORDERED: SODIUM CHLORIDE 0.9% FLUSH 10 ML FLUSH IV FLUSH PRN (04:45)
[2018-02-28] MEDS ORDERED: MAGNESIUM HYDROXIDE SUSP 30 ML CUP PO PRN (04:45)
[2018-02-28] MEDS ORDERED: SENNOSIDES 8.6 MG TAB PO PRN (04:45)
[2018-02-28] MEDS ORDERED: NALOXONE HCL 0.4 MG/ML AMP IV PUSH PRN (04:45)
[2018-02-28] MEDS ORDERED: ONDANSETRON HCL 4 MG/2 ML VIAL IVP PRN (04:45)
[2018-02-28] MEDS ORDERED: LACTULOSE SYRUP 20 GM/30 ML CUP PO PRN (04:45)
[2018-02-28] MEDS ORDERED: BISACODYL 10 MG SUPP RECTAL PRN (04:45)
[2018-02-28] MEDS ORDERED: ACETAMINOPHEN 325 MG TAB PO PRN (04:45)
[2018-02-28 04:52] LABS: AMORPHOUS SEDIMENT, URINE RARE; BACTERIA, URINE RARE /hpf; BILIRUBIN, URINE NEG (NEG); BLOOD, URINE NEG (NEG); GLUCOSE,URINE NEG (NEG); KETONE, URINE NEG (NEG); MUCUS URINE FEW /lpf (OCC); NITRITE,URINE NEG (NEG); SQUAMOUS EPITHELIAL CELL URINE 7 /hpf (0-5); TRANSITIONAL EPI CELLS, URINE <1 /hpf; URINE COLOR LIGHT-YELLOW (YELLW/STRAW); URINE LEUKOCYTE ESTERASE SMALL (NEG)
[2018-02-28] MEDS ORDERED: Vancomycin Consult Pharmacy 1 EA OTHER SCH (05:15)
--- NOTE | 2018-02-28 05:21 | HHI.HP ---
[facility] Service [facility] Primary Care Physician No Primary Care Physician Admission Diagnosis Cellulitis with abscess, Sepsis Diagnoses: Travel History International Travel<30 Days: No Contact w/Intl Traveler <30 Da: No Traveled to Known Affected Are: No History of Present Illness 27-year-old female with a past medical history significant for IV drug abuse presents to the emergency department for the evaluation of a left lateral thigh abscess. The patient reports she had a lump on her left thigh that began approximately 2-3 days ago. She reports that she last injected heroin in the left leg approximately 1 week ago she reports last heroin use a few hours prior to her arrival. The patient endorses subjective fevers/chills. She denies any chest pain, chest pressure or shortness of breath. No nausea/vomiting/diarrhea/ abdominal pain. No weakness or fatigue. Review of Systems Except as stated in HPI: all other systems reviewed are Neg Past Family Social History Past Medical History IV drug abuse Hepatitis C Past Surgical History Reported Meds & Active Scripts Active No Active Prescriptions or Reported Medications Reported Medications Reported Meds & Active Scripts Active No Active Prescriptions or Reported Medications Allergies: Coded Allergies: *MDRO Multi-Drug Resistant Organism (Verified Adverse Reaction, Unknown, ) MRSA (face) -10/17/16 Family History Negative for CAD/DM Social History Smokes approximately 1 pack per day. Occasional alcohol. IV drug abuse with methamphetamine and heroin. Physical Exam Vital Signs Vital Signs Date Time Temp Pulse Resp B/P (MAP) Pulse Ox O2 Delivery O2 Flow Rate FiO2 02/28/18 04:12 86 18 102/65 (77) 99 Room Air 02/28/18 03:36 92 18 90/54 (66) 98 Room Air 02/28/18 02:30 86 18 86/56 (66) 98 Room Air 02/28/18 02:10 98 Room Air 02/28/18 01:49 97.5 94 18 91/53 (66) 99 Physical Exam GENERAL: female lying in bed SKIN: Left lateral thigh erythema and edema status post incision and drainage. HEAD: Atraumatic. Normocephalic. No temporal or scalp tenderness. EYES: Pupils equal round and reactive. Extraocular motions intact. No scleral icterus. No injection or drainage. ENT: Nose without bleeding, purulent drainage or septal hematoma. Throat without erythema, tonsillar hypertrophy or exudate. Uvula midline. Airway patent. NECK: Trachea midline. No JVD or lymphadenopathy. Supple, nontender, no meningeal signs. CARDIOVASCULAR: Regular rate and rhythm without murmurs, gallops, or rubs. RESPIRATORY: Clear to auscultation. Breath sounds equal bilaterally. No wheezes , rales, or rhonchi. GASTROINTESTINAL: Abdomen soft, non-tender, nondistended. No hepato-splenomegaly , or palpable masses. No guarding. MUSCULOSKELETAL: Extremities without clubbing, cyanosis, or edema. No joint tenderness, effusion, or edema noted. No calf tenderness. NEUROLOGICAL: Awake and alert. Cranial nerves II through XII intact. Motor and sensory grossly within normal limits. Normal speech. Laboratory Laboratory Tests Test 02/28/18 01:35 02/28/18 04:36 White Blood Count 12.0 Red Blood Count 3.75 Hemoglobin 10.7 Hematocrit 32.1 Mean Corpuscular Volume 85.7 Mean Corpuscular Hemoglobin 28.4 Mean Corpuscular Hemoglobin Concent 33.2 Red Cell Distribution Width 15.1 Platelet Count 315 Mean Platelet Volume 7.8 Neutrophils (%) (Auto) 75.2 Lymphocytes (%) (Auto) 17.2 Monocytes (%) (Auto) 5.2 Eosinophils (%) (Auto) 1.8 Basophils (%) (Auto) 0.6 Neutrophils # (Auto) 9.0 Lymphocytes # (Auto) 2.1 Monocytes # (Auto) 0.6 Eosinophils # (Auto) 0.2 Basophils # (Auto) 0.1 CBC Comment DIFF FINAL Differential Comment Erythrocyte Sedimentation Rate 37 Blood Urea Nitrogen 18 Creatinine 0.73 Random Glucose 90 Total Protein 7.7 Albumin 3.6 Calcium Level 8.8 Magnesium Level 2.0 Alkaline Phosphatase 72 Aspartate Amino Transf (AST/SGOT) 11 Alanine Aminotransferase (ALT/SGPT) 19 Total Bilirubin 0.6 Sodium Level 140 Potassium Level 3.8 Chloride Level 102 Carbon Dioxide Level 30.5 Anion Gap 8 Estimat Glomerular Filtration Rate 97 Lactic Acid Level 1.1 C-Reactive Protein 2.15 Lipase 77 Ethyl Alcohol Level LESS THAN 3 Urine Color LIGHT-YELLOW Urine Turbidity HAZY Urine pH 8.0 Urine Specific [place] 1.021 Urine Protein TRACE Urine Glucose (UA) NEG Urine Ketones NEG Urine Occult Blood NEG Urine Nitrite NEG Urine Bilirubin NEG Urine Urobilinogen LESS THAN 2.0 Urine Leukocyte Esterase SMALL Urine RBC 3 Urine WBC 15 Urine Squamous Epithelial Cells 7 Urine Transitional Epithelial Cells <1 Urine Amorphous Sediment RARE Urine Bacteria RARE Urine Mucus FEW Urine Yeast (Budding) MANY Microscopic Urinalysis Comment CULTURE INDICATED Urine Opiates Screen POS Urine Barbiturates Screen NEG Urine Amphetamines Screen NEG Urine Benzodiazepines Screen NEG Urine Cocaine Screen POS Urine Cannabinoids Screen POS Date/Time Source Procedure Growth Status 02/28/18 01:35 Blood Peripheral Aerobic Blood Culture Pending Received 02/28/18 01:35 Blood Peripheral Anaerobic Blood Culture Pending Received 02/28/18 04:36 Urine Clean Catch Urine Culture Pending Received 02/28/18 01:30 Wound Leg Gram Stain Pending Received 02/28/18 01:30 Wound Leg Wound Culture Pending Received Result Diagram: 02/28/18 0135 02/28/18 0135 Caprini VTE Risk Assessment Caprini VTE Risk Assessment: No/Low Risk (score <= 1) Caprini Risk Assessment Model Point Value = 1 Point Value = 2 Point Value = 3 Point Value = 5 Age 41-60 Minor surgery BMI > 25 kg/m2 Swollen legs Varicose veins or History of unexplained or recurrent spontaneous Oral contraceptives or hormone replacement Sepsis (< 1 month) Serious lung disease, including pneumonia (< 1 month) Abnormal pulmonary function Acute myocardial infarction Congestive heart failure (< 1 month) History of inflammatory bowel disease Medical patient at bed rest Age 61-74 Arthroscopic surgery Major open surgery (> 45 min) Laparoscopic surgery (> 45 min) Malignancy Confined to bed (> 72 hours) Immobilizing plaster cast Central venous access Age >= 75 History of VTE Family history of VTE Factor V Leiden Prothrombin [id number] Lupus anticoagulant Anticardiolipin antibodies Elevated serum homocysteine Heparin-induced thrombocytopenia Other congenital or acquired thrombophilia Stroke (< 1 month) Elective arthroplasty Hip, pelvis, or leg fracture Acute spinal cord injury (< 1 month) Prophylaxis Regimen Total Risk Factor Score Risk Level Prophylaxis Regimen 0-1 Low Early ambulation 2 Moderate Order ONE of the following: *Sequential Compression Device (SCD) *Heparin 5000 units SQ BID 3-4 Higher Order ONE of the following medications: *Heparin 5000 units SQ TID *Enoxaparin/Lovenox 40 mg SQ daily (WT < 150 kg, CrCl > 30 mL/min) *Enoxaparin/Lovenox 30 mg SQ daily (WT < 150 kg, CrCl > 10-29 mL/min) *Enoxaparin/Lovenox 30 mg SQ BID (WT < 150 kg, CrCl > 30 mL/min) AND/OR *Sequential Compression Device (SCD) 5 or more Highest Order ONE of the following medications: *Heparin 5000 units SQ TID (Preferred with Epidurals) *Enoxaparin/Lovenox 40 mg SQ daily (WT < 150 kg, CrCl > 30 mL/min) *Enoxaparin/Lovenox 30 mg SQ daily (WT < 150 kg, CrCl > 10-29 mL/min) *Enoxaparin/Lovenox 30 mg SQ BID (WT < 150 kg, CrCl > 30 mL/min) AND *Sequential Compression Device (SCD) Assessment and Plan Assessment and Plan Assessment/plan: 1. Cellulitis with abscess Status post I&D in the emergency department Wound culture pending Blood cultures pending Status post vancomycin/Zosyn in the emergency department Patient's last wound culture positive for MRSA, sensitive to Bactrim P.o. Bactrim 2. Urinary tract infection Antibiotics as above Urine culture pending 3. IV drug abuse Cessation counseling provided 4. Hypotension Responded well to IV fluids Suspect secondary to heroin use as patient overtly intoxicated on exam FEN Regular diet Electrolytes: monitor and replete prn NS at 100 cc/hr Brea Rubio MD Feb 28, 2018 05:21
[2018-02-28] MEDS ORDERED: VANCOMYCIN INJ 750 MG in SODIUM CHLOR 0.9% 250 ML INJ 250 ML IV ONE (05:30)
[2018-02-28] MEDS: SODIUM CHLOR 0.9% 1000 ML INJ 1,000 ML IV SCH ×3 (06:38→21:16)
[2018-02-28] MEDS: SODIUM CHLORIDE 0.9% FLUSH 10 ML FLUSH IV FLUSH SCH ×2 (08:03→21:15)
[2018-02-28] MEDS ORDERED: CLINDAMYCIN 900 MG/NS PREMIX 50 ML IV SCH (08:30)
[2018-02-28] MEDS: SULFAMETHOXAZOLE-TRIMETHOPRIM DS 800-160 MG TAB PO SCH ×2 (09:03→21:15)
[2018-02-28] MEDS: DOCUSATE SODIUM 50 MG/SENNA 8.6 MG TAB PO SCH ×2 (09:03→21:15)
--- NOTE | 2018-02-28 10:41 | HHI.PR ---
Subjective Remarks Follow-up left thigh cellulitis/abscess February 28, 2018-patient seen and examined, complaining of left lower extremity pain. Currently drowsy. Currently afebrile Objective Vitals Vital Signs Date Time Temp Pulse Resp B/P (MAP) Pulse Ox O2 Delivery O2 Flow Rate FiO2 02/28/18 08:00 98.8 84 16 100/64 (76) 98 02/28/18 05:40 97.9 89 18 105/58 (74) 97 02/28/18 05:25 02/28/18 04:12 86 18 102/65 (77) 99 Room Air 02/28/18 03:36 92 18 90/54 (66) 98 Room Air 02/28/18 02:30 86 18 86/56 (66) 98 Room Air 02/28/18 02:10 98 Room Air 02/28/18 01:49 97.5 94 18 91/53 (66) 99 I/O 02/27/18 02/27/18 02/27/18 02/28/18 02/28/18 02/28/18 07:00 15:00 23:00 07:00 15:00 23:00 Intake Total 4800 ml Output Total 125 ml Balance 4675 ml Intake IV Total 4800 ml Output Urine Total 125 ml # Voids 1 Result Diagram: 02/28/185 02/28/18134 Objective Remarks GENERAL: NAD SKIN: Warm and dry. left thigh wound with surrounding minimal erythema HEAD: Normocephalic. EYES: No scleral icterus. No injection or drainage. NECK: Supple, trachea midline. No JVD or lymphadenopathy. CARDIOVASCULAR: Regular rate and rhythm without murmurs, gallops, or rubs. RESPIRATORY: Breath sounds equal bilaterally. No accessory muscle use. GASTROINTESTINAL: Abdomen soft, non-tender, nondistended. MUSCULOSKELETAL: No cyanosis, or edema. BACK: Nontender without obvious deformity. No CVA tenderness. A/P Problem List: (1) Cellulitis and abscess of left leg ICD Code: L03.116 - Cellulitis of left lower limb; L02.416 - Cutaneous abscess of left lower limb (2) IV drug abuse ICD Code: F19.10 - IV drug abuse Status: Acute Assessment and Plan 27-year-old female with 1. Cellulitis with abscess Status post I&D in the emergency department Wound and blood cultures pending Status post vancomycin/Zosyn in the emergency department 2. Urinary tract infection Antibiotics as above Urine culture pending 3. IV drug abuse Cessation counseling provided 4. Hypotension Responded well to IV fluids Mendel Trejo MD Feb 28, 2018 10:41
[2018-02-28] MEDS ORDERED: VANCOMYCIN INJ 1,000 MG in SODIUM CHLOR 0.9% 250 ML INJ 250 ML IV SCH (14:30)
[2018-02-28] MEDS: MORPHINE SULFATE 4 MG/ML INJ IV PUSH PRN ×2 (16:57→21:16)
[2018-03-01] VITALS: BP 102/59; PULSE 84; RESP 18; TEMP 99; O2SAT 99
[2018-03-01] MEDS: MORPHINE SULFATE 4 MG/ML INJ IV PUSH PRN ×2 (02:06→05:25)
[2018-03-01 04:00] VITALS: BP 100/65; PULSE 80; RESP 18; TEMP 98; O2SAT 95
[2018-03-01 08:00] VITALS: BP 105/66; PULSE 79; RESP 14; TEMP 98.5; O2SAT 96
[2018-03-01] MEDS ORDERED: Vancomycin Consult Pharmacy 1 EA OTHER SCH (09:00)
--- NOTE | 2018-03-01 09:01 | HHI.PR ---
Subjective Remarks Follow-up left thigh cellulitis/abscess February 28, 2018-patient seen and examined, complaining of left lower extremity pain. Currently drowsy. Currently afebrile March 01, 2018-patient seen and examined, Currently afebrile. Complains of left lower extremity pain. Objective Vitals Vital Signs Date Time Temp Pulse Resp B/P (MAP) Pulse Ox O2 Delivery O2 Flow Rate FiO2 03/01/18 08:00 98.5 79 14 105/66 (79) 96 03/01/18 04:00 98.0 80 18 100/65 (77) 95 03/01/18 00:00 99.0 84 18 102/59 (73) 99 02/28/18 20:04 98.4 84 20 98/57 (71) 94 02/28/18 17:02 18 02/28/18 16:00 98.0 69 16 105/74 (84) 100 02/28/18 12:00 98.2 79 17 104/64 (77) 99 I/O 02/28/18 02/28/18 02/28/18 03/01/18 03/01/18 03/01/18 07:00 15:00 23:00 07:00 15:00 23:00 Intake Total 4800 ml 960 ml 320 ml Output Total 125 ml Balance 4675 ml 960 ml 320 ml Intake Oral 960 ml 320 ml IV Total 4800 ml Output Urine Total 125 ml # Voids 1 5 2 Result Diagram: 02/28/18 0135 02/28/18 0135 Objective Remarks GENERAL: NAD SKIN: Warm and dry. left thigh wound with surrounding minimal erythema HEAD: Normocephalic. EYES: No scleral icterus. No injection or drainage. NECK: Supple, trachea midline. No JVD or lymphadenopathy. CARDIOVASCULAR: Regular rate and rhythm without murmurs, gallops, or rubs. RESPIRATORY: Breath sounds equal bilaterally. No accessory muscle use. GASTROINTESTINAL: Abdomen soft, non-tender, nondistended. MUSCULOSKELETAL: No cyanosis, or edema. BACK: Nontender without obvious deformity. No CVA tenderness. A/P Problem List: (1) Cellulitis and abscess of left leg ICD Code: L03.116 - Cellulitis of left lower limb; L02.416 - Cutaneous abscess of left lower limb (2) IV drug abuse ICD Code: F19.10 - IV drug abuse Status: Acute Assessment and Plan 27-year-old female with 1. Cellulitis with abscess Status post I&D in the emergency department Wound and blood cultures pending Status post vancomycin/Zosyn in the emergency department Continue vancomycin 2. Urinary tract infection Antibiotics as above Urine culture pending 3. IV drug abuse Cessation counseling provided 4. Hypotension Responded well to IV fluids Mendel Trejo MD Mar 01, 2018 09:01
[2018-03-01] MEDS ORDERED: ACETAMINOPHEN/HYDROcodone 325 MG/7.5 MG TAB PO PRN (10:00)
[2018-03-01] MEDS ORDERED: VANCOMYCIN INJ 1,250 MG in SODIUM CHLOR 0.9% 250 ML INJ 250 ML IV ONE (10:00)
[2018-03-01] MEDS ORDERED: ACETAMINOPHEN/HYDROcodone 325 MG/5 MG TAB PO PRN (10:00)
[2018-03-01] MEDS: SULFAMETHOXAZOLE-TRIMETHOPRIM DS 800-160 MG TAB PO SCH (10:12)
[2018-03-01] MEDS: DOCUSATE SODIUM 50 MG/SENNA 8.6 MG TAB PO SCH (10:12)
[2018-03-01] MEDS ORDERED: VANCOMYCIN 1,000 MG/NS 250 ML IV SCH ×2 (12:00)
[2018-03-02] MEDS ORDERED: PHARMACY ORDERED LAB ONE (11:45)
== END 2018-03-01 11:17 | disposition left against medical advice (07) ==
LOC: NEPE 01:43 → UNDOADMIN 04:38 → NEDA 04:38 → INTOOBSV 05:07 → N03B 05:47
PROVIDERS: ADMIT Hospitalist; ATTEND Hospitalist
DX: L03.116 Cellulitis of left lower limb (principal); L02.416 Cutaneous abscess of left lower limb; A41.9 Sepsis, unspecified organism; N39.0 Urinary tract infection, site not specified; B95.62 Methicillin resistant Staphylococcus aureus infection as the cause of diseases classified elsewhere; I95.9 Hypotension, unspecified; F11.10 Opioid abuse, uncomplicated; F15.10 Other stimulant abuse, uncomplicated; F17.210 Nicotine dependence, cigarettes, uncomplicated; F90.9 Attention-deficit hyperactivity disorder, unspecified type; J30.81 Allergic rhinitis due to animal (cat) (dog) hair and dander
CPT/HCPCS: 10060; 80053; 80307; 81001; 82948; 83605; 83690; 83735; 84703; 85025; 85652; 86140; 86403; 87040; 87070; 87086; 87147; 87186; 87205; 96361; 96365; 96367; 96375; 96376; 99285; G0378; J2270; J2405; J2543; J3370; J7030; J7050

== ENCOUNTER 2018-04-19 16:20 | Emergency (ER) | payer SELFPAY ==
[2018-04-19 16:50] VITALS: BP 90/58; PULSE 88; RESP 17; TEMP 97.8; O2SAT 99
[2018-04-19] MEDS ORDERED: BACT800T5 PO (17:59)
[2018-04-19] MEDS ORDERED: CEPH-460 PO (17:59)
[2018-04-19] MEDS ORDERED: SULFAMETHOXAZOLE-TRIMETHOPRIM DS 800-160 MG TAB PO ONE (18:00)
[2018-04-19] MEDS ORDERED: CEPHALEXIN MONOHYDRATE 500 MG CAP PO ONE (18:00)
--- NOTE | 2018-04-19 18:00 | PD ---
HPI Chief Complaint: Skin Problem Time Seen by Provider: 17:38 Travel History International Travel<30 days: No Contact w/Intl Traveler<30days: No Traveled to known affect area: No History of Present Illness HPI Patient is a 27-year-old female presented to the emergency department for evaluation of an abscess to her left lateral thigh. Patient reports injecting methamphetamines to that area. She states her symptoms started 4-5 days ago, initially it was very red and then started draining pus spontaneously 2 days ago. Patient denies any fever, chills, nausea, vomiting, headache or shortness of breath. Patient states that she also injects heroin, she last used that this morning. Symptom onset was gradual, symptoms are moderate in nature. Patient denies any significant pain. PFSH Past Medical History ADHD: Yes Asthma: Yes ( A CHILD) Anxiety: Yes Depression: Yes Psychiatric: Yes Immunizations Current: Yes Pneumonia: Yes ?: Not : 0 Para: 0 Past Surgical History Abdominal Surgery: No Appendectomy: No Cardiac Surgery: No Section: No Cholecystectomy: No Ear Surgery: No Endocrine Surgery: No Genitourinary Surgery: No Gynecologic Surgery: No Oral Surgery: Yes Thoracic Surgery: No Other Surgery: Yes (ROOT CANAL 03/23/2010, JAW SURGERY 2017) Social History Alcohol Use: Yes (OCCASIONALLY) Tobacco Use: Yes (1 PPD) Substance Use: Yes (IV heroin, methamphetamine) Allergies-Medications (Allergen,Severity, Reaction): Coded Allergies: *MDRO Multi-Drug Resistant Organism (Verified Adverse Reaction, Unknown, ) 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 SKIN: Warm and dry. 1 cm x 2 cm ulcerated lesion to lateral aspect of the right thigh. No induration or exudate noted. Mildly tender to palpation. HEAD: Atraumatic. Normocephalic. EYES: Pupils equal and round. No scleral icterus. No injection or drainage. ENT: No nasal bleeding or discharge. Mucous membranes pink and moist. NECK: Trachea midline. No JVD. CARDIOVASCULAR: Regular rate and rhythm. RESPIRATORY: No accessory muscle use. Clear to auscultation. Breath sounds equal bilaterally. GASTROINTESTINAL: Abdomen soft, non-tender, nondistended. Hepatic and splenic margins not palpable. MUSCULOSKELETAL: Extremities without clubbing, cyanosis, or edema. No obvious deformities. NEUROLOGICAL: Awake and alert. No obvious cranial nerve deficits. Motor grossly within normal limits. Five out of 5 muscle strength in the arms and legs. Normal speech. PSYCHIATRIC: Appropriate mood and affect; insight and judgment normal. Data Data Last Documented VS Vital Signs Date Time Temp Pulse Resp B/P (MAP) Pulse Ox O2 Delivery O2 Flow Rate FiO2 04/19/18 18:10 97.8 75 12 86/56 (66) 100 Room Air Orders Orders Sulfamet-Trimeth Ds 800-160 Mg (Bactrim (04/19/18 18:00) Cephalexin (Keflex) (04/19/18 18:00) [facility] Medical Decision Making Medical Screen Exam Complete: Yes Emergency Medical Condition: Yes Interpretation(s) Vital Signs Date Time Temp Pulse Resp B/P (MAP) Pulse Ox O2 Delivery O2 Flow Rate FiO2 04/19/18 16:50 97.8 88 17 90/58 (69) 99 Differential Diagnosis Cellulitis versus abscess versus sepsis versus other Narrative Course Patient is a 27-year-old female presenting for evaluation of an abscess to her right thigh after injecting methamphetamines there about a week ago. Patient's vital signs are stable, she is hypotensive however historically she has been hypotensive in the emergency department. It appears that abscess has drained and is appearing to resolve on its own. Wound cultures been obtained. Patient will be started on Bactrim and Keflex now. She was encouraged to keep wound covered with clean dressing. She was encouraged to change as needed and daily for soiling. She is encouraged to follow-up at the [facility] or return to emergency department for any new or worsening symptoms. Patient appears intoxicated, at this time she will be allowed to sleep it off in the emergency department, she will be discharged when she is alert Diagnosis Primary Impression: Cellulitis and abscess of left leg Additional Impression: Polysubstance abuse Referrals: [facility] 2 days Patient Instructions: Abscess (ED), Cellulitis (ED), General Instructions, Polysubstance Abuse (ED) Med/Other Pt SpecificInfo: Prescription(s) given Scripts Cephalexin (Keflex) 500 Mg Cap 500 MG PO Q12H for Infection, #20 CAP 0 Refills Prov: Anaya Lazar 04/19/18 Sulfamethoxazole-Trimethoprim (Bactrim DS) 800-160 Mg Tab 1 TAB PO BID for Infection, #20 TAB 0 Refills Prov: Anaya Lazar 04/19/18 Disposition: 01 DISCHARGE HOME Condition: Stable Anaya Lazar Apr 19, 2018 18:00
[2018-04-19 18:10] VITALS: BP 86/56; PULSE 75; RESP 12; TEMP 97.8; O2SAT 100
[2018-04-19] MEDS ORDERED: METH5TAB PO (18:12)
[2018-04-19] MEDS ORDERED: METH10TA PO (18:12)
[2018-04-19 19:22] VITALS: BP 86/52; PULSE 73; RESP 16; O2SAT 100
== END 2018-04-19 20:16 | disposition home or self-care (01) ==
LOC: NEPD 16:20
DX: L03.116 Cellulitis of left lower limb (principal); L02.416 Cutaneous abscess of left lower limb; F19.10 Other psychoactive substance abuse, uncomplicated; F11.10 Opioid abuse, uncomplicated; F15.10 Other stimulant abuse, uncomplicated; F17.210 Nicotine dependence, cigarettes, uncomplicated; F32.9 Major depressive disorder, single episode, unspecified; F41.9 Anxiety disorder, unspecified; Z79.899 Other long term (current) drug therapy
CPT/HCPCS: 99283